=== PATIENT | male | born 1955 | race Caucasian/White ===

== ENCOUNTER 2016-06-23 11:01 | Inpatient (IN) | payer BC ==
[2016-06-23] VITALS (20 sets, daily range): BP systolic 117–152; BP diastolic 71–93; PULSE 56–72; TEMP 36.7–37.4; O2SAT 96–99; Ht 175.3 cm; Wt 95.5 kg
[~2016-06-23] VITALS: Ht 175.3 cm; Wt 95.5 kg
[~2016-06-23 11:01] MED LIST: ASPI81TA28 PO; ATOR10TA88 PO; CHOL100027 PO; CLXOPO OP; CYAN100020 PO; MULT-506 PO; OMEG10007 PO; PRLSR20 PO; RSTOPS OP; VITA1TAB12 PO
[2016-06-23] MEDS ORDERED: SODIUM CHLORIDE 0.9% 1000ML 500 ML IV STA (11:23)
[2016-06-23] MEDS ORDERED: ASPIRIN 81 MG CHEW PO STA (11:23)
[2016-06-23] MEDS ORDERED: ASPIRIN 324 MG CHEW ONE (11:25)
[2016-06-23] MEDS ORDERED: TICAGRELOR 90 MG TAB PO ONE (11:30)
[2016-06-23] MEDS ORDERED: DOPamine 400MG / 250ML D5W ONE (11:35)
[2016-06-23] MEDS ORDERED: ONDANSETRON INJ 2 MG/ML 2 ML VIAL ONE (11:38)
[2016-06-23 11:45] LABS: ISTAT CREATININE 1.2 mg/dl (0.6-1.3); ISTAT HEMOGLOBIN 17.3 g/dl (14.0-18.0); ISTAT IONIZED CALCIUM 1.19 mmol/l (1.12-1.32)
[2016-06-23] MEDS ORDERED: ATROPINE SULFATE 0.1 MG/ML 10 ML SYR ONE (11:46)
[2016-06-23 11:51] LABS: MEAN CELL VOLUME 92.3 fL (80-100); MEAN CORPUSCULAR HEMOGLOBIN 32.5 pg (25-34); MEAN CORPUSCULAR HGB CONC 35.2 g/dl (32-36); MEAN PLATELET VOLUME 10.6 fL (7.4-10.4); PLATELET COUNT 273 K/uL (130-400)
[2016-06-23] MEDS ORDERED: NiCARDipine HCL INJ 2.5 MG/ML 10 ML AMP ONE (11:55)
[2016-06-23] MEDS ORDERED: HEPARIN SOD (PORCINE) 1000 UNIT/ML 10 ML VIAL ONE (11:56)
[2016-06-23] MEDS ORDERED: FENTANYL CITRATE INJ 50 MCG/1 ML 2 ML VIAL ONE (11:57)
[2016-06-23] MEDS ORDERED: MIDAZOLAM HCL 1 MG/ML 2ML VIAL ONE (11:57)
[2016-06-23] MEDS ORDERED: NITROGLYCERIN/D5W 100MCG/ML 20ML SYR ONE (11:57)
[2016-06-23 12:09] LABS: BUN/CREATININE RATIO 17.1 (10-20); CALCIUM 9.1 mg/dl (8.5-10.1); CREATININE 1.4 mg/dl (0.60-1.40); POTASSIUM 3.6 mmol/L (3.5-5.1)
[2016-06-23 12:14] LABS: ALB/GLOB RATIO 1.2 (0.9-2); CKMB/CK RATIO 1.5 (0-3.0)
--- NOTE | 2016-06-23 12:16 | DIAGNOSTIC IMAGING REPORT ---
CHEST ONE VIEW PORTABLE CLINICAL HISTORY: CHEST PAIN dyspnea COMPARISON STUDY: No previous studies for comparison. FINDINGS: Film is obtained in lordotic projection. Mild fullness mid dyspnea mediastinum felt to be projectional. Lungs are clear. Diaphragms smooth. Costophrenic angles are sharp. IMPRESSION: No acute process Electronically signed by: Bartolo Candelario M.D. 06/23/2016 12:14 PM Dictated Date/Time: 06/23/2016 12:14 PM
[2016-06-23] MEDS ORDERED: EPTIFIBATIDE 2 MG/ML 10 ML VIAL IV ONE (12:19)
[2016-06-23] MEDS ORDERED: EPTIFIBATIDE 0.75 MG/ML 75MG VIAL IV ONE (12:19)
--- NOTE | 2016-06-23 12:44 | Procedure Note ---
Pre-Mod Sedation Assessment General Date of Moderate Sedation: Jun 23, 2016. Vital Signs: Vital Signs Past 12 Hours Date Time Temp Pulse Resp B/P Pulse Ox O2 Delivery O2 Flow Rate FiO2 06/23/16 12:36 74 16 124/86 98 Room Air 06/23/16 12:26 73 16 123/91 100 Room Air 06/23/16 11:35 98 Room Air 06/23/16 11:23 53 06/23/16 11:11 36.4 44 18 137/89 98 Room Air Review Cardiovascular: no edema, no JVD, + bradycardia Abdomen: normal bowel sounds, non tender, soft Lungs: chest non-tender, lungs clear Pre-Sedation Airway Assessment Oral Cavity: WNL Able to Visualize Vocal Cords: Yes Short Thick Neck: No Hx of Sleep Apnea: No Smoking Status: Never Smoker Mallampati Classification: Class II ASA Classification: Class III Procedure Planning Contraindications-for Mod Sed: None Yes Notes The planned sedation has been discussed with the patient and consent obtained. I have identified the patient, determined the appropriateness of sedation and have assessed the patient immediately prior to the procedure. All medicine(s) and interventions are by my order.
[2016-06-23] MEDS ORDERED: EPTIFIBATIDE BOLUS / DRIP IV ONE (12:45)
[2016-06-23] MEDS ORDERED: ACETAMINOPHEN 325 MG TAB PO PRN (12:45)
[2016-06-23] MEDS: SODIUM CHLORIDE 0.9% 1000ML 1,000 ML IV SCH ×2 (12:45→17:53)
[2016-06-23] MEDS ORDERED: ONDANSETRON INJ 2 MG/ML 2 ML VIAL IV PRN (12:45)
[2016-06-23] MEDS ORDERED: ATROPINE SULFATE 0.1 MG/ML 5ML SYR IV PRN (12:45)
--- NOTE | 2016-06-23 12:48 | Procedure Note ---
Post-Mod Sedation Assessment General Date of Moderate Sedation Jun 23, 2016. Vital Signs: Vital Signs Past 12 Hours Date Time Temp Pulse Resp B/P Pulse Ox O2 Delivery O2 Flow Rate FiO2 06/23/16 12:36 74 16 124/86 98 Room Air 06/23/16 12:26 73 16 123/91 100 Room Air 06/23/16 11:35 98 Room Air 06/23/16 11:23 53 06/23/16 11:11 36.4 44 18 137/89 98 Room Air Review - Discharge Criteria Vital Signs Stable: Yes Alert/Oriented/Conversant: Yes Returned to Baseline Mental St: Yes Nausea Absent/Minimal: Yes Pain/Discomfort/Absent/Minimal: Yes Normal/Baseline Respirations: Yes Active Bleeding?: No Pt Received D/C Instructions: N/A Prescriptions Given: None Specific Proced. D/C Criteria Distal Pulses Present (Cardiac: Yes Groin site assessed-Card Cath: N/A Voided Prior To Discharge: N/A Discharged Patients Adult Escort/Transportation: Yes
--- NOTE | 2016-06-23 13:20 | Cardiac Catheterization ---
Procedure Note Procedure Date Jun 23, 2016. 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 Circumflex - Moderate caliber vessel, 40% ostial stenosis. Gives off moderate sized 1st OM with 90% ostial stenosis RCA - Dominant, large caliber vessel. Luminal irregularities in proximal and mid segments. Distal RCA 100% occluded prior to take-off of R-PDA. Post intervention PDA with luminal irregularities. R-PAV 20-30% ostial lesion before gives off 2 large R-PLBs. 1st R-PLB with 95% very distal stenosis with apparent thrombus Arterial Closure: TR Band PCI: Antithrombotic therapy: Heparin, Ticagrelor, Integrilin Procedure: BMW wire navigated through distal RCA occlusion into 1st R-PLB Lesion predilated with 2.5 x 12 compliant balloon Distal RCA stented with 3.5 x 18 Xience ZEV Stent post-dilated with 3.5 NC balloon. Post stent placement resolution of ST elevations, SIMA 3 flow and stent well- expanded with minimal residual stenosis. As left system picture were being obtained inferior ST segments mildly elevated again. Thought in part secondary to 95% lesion with thrombus in very distal R- PLB1. Started on Integrilin with improvement in ST segments. Repeat RCA angiogram showed SIMA 3 flow throughout. Summary: 1. Inferior STEMI - 100% acutely occluded distal RCA Successfully treated with PCI with ZEV (3.5 x 18 Xience) 2. Severe multivessel coronary artery disease - Diffuse moderate proximal LAD disease with 70-80% focal mid LAD stenosis. - 90% ostial OM1 stenosis 3. Normal intracardiac filling pressures Recommendations: Admit to ICU for further monitoring Continue Integrilin infusion for 18 hrs Loaded with Ticagrelor/ASA --> continue DAPT for 1 year High dose statin Beta-gibson, GENET as BP allow Will discuss options regarding residual multivessel disease. Hemodynamics Rest Ao: 119/85/101 Final Ao: 144/85 LV: 122/15 Recommendations PCI without planned CABG Specimens None Radiation Exposure (mGy) 2727 Contrast (mls) 160 Opti Fluids (cc crystalloids) 510 NS Anesthesia Moderate Procedural Complication(s) None Disposition ICU ACC Data Cardiac Status Clinical evaluation leading to the procedure CAD Presntation: STEMI STEMI or Non-STEMI: Thrombolytics: No Anginal Classification: CCS IV Heart Failure: No, NYHA Class: CCS I Cardiogenic Shock w/in 24Hrs: No Cardiac Arrest w/in 24Hrs: No Imaging studies past 6 months: No Stress studies past 6 months: No Standard Exercise Stress Test: No Stress Echocardiogram: No Stress Testing w/SPECT MPI: No Cardiac CTA: No Coronary Anatomy Dominant: Right Left Main (% Stenosis): Ostial (20-30) LAD (% Stenosis): Proximal (50-60), Mid (70-80) D1 (% Stenosis): Proximal (70-80) Circumflex (% Stenosis): Ostial (40) OM1 (% Stenosis): Ostial (90) RCA (% Stenosis): Distal (100) R PL1 (% Stenosis): Distal (95) Diagnostic Physician's Name: Dale Jones MD Status: Emergency Closure Device Percutaneous Entry Location: Radial Closure Device: Radial Band Recommendations: PCI without planned CABG PCI Indication: Immediate PCI for STEMI Lesion Segment Name: Distal RCA Culprit Artery: Yes Stenosis Prior to Rx (%): 100 Chronic Total Occlusion: No IVUS: No FFR: No Pre-Procedure SIMA Flow: 0 Previously Treated Lesion: No Lesion Complexity: Non-High/Non-C Lesion Length (mm): 12 Thrombus Present: Yes Bifurcation Lesion: No Guidewire Across Lesion: Yes Guidewire: Stenosis Post-Procedure (%): 0 Post-Procedure SIMA Flow: 3 Device(s) Deployed: Yes Type of Device(s): Xience 3.5 x 18 Intraprocedure Events Significant Dissection: No Perforation: No
--- NOTE | 2016-06-23 14:27 | CARDIOLOGY CONSULTATION ---
DATE OF CONSULTATION: 06/23/2016 REASON FOR CONSULTATION: STEMI. CONSULTATION REQUESTED BY: Dr. Shafer. HISTORY OF PRESENT ILLNESS: Mr. Hudson is a 60-year-old male without significant past medical history who presented acutely to the Emergency Department with feelings of back and left arm pain and generally feeling unwell. He had initial EKG which showed impressive inferior ST elevations with sinus bradycardia and a heart alert was called. The patient was seen in the Emergency Department, he was having continued active symptoms, was hemodynamically stable and decision was made to bring him emergently to the heart catheterization lab. There he was found to have 100% occluded distal RCA which was treated with 1 drug-eluting stent with good angiographic result (3.5 x 18 Xience stent). Post-procedure, the patient was chest pain free, ST segments had improved and he had SIMA 3 flow throughout. He was transferred to the ICU for ongoing care. PAST MEDICAL HISTORY: 1. Hypertension, not on meds. 2. Hyperlipidemia. SOCIAL HISTORY: He is , has 2 grown children. Denies ever smoking. Denies any significant alcohol. Denies any illicit drugs. At baseline he is very active, exercises 4-5 times a week and had just come from spinning class prior to intervention today. FAMILY HISTORY: Father had an CA and in his late 50s. MEDICATIONS: Atorvastatin 10. ALLERGIES: AMOXICILLIN, CEPHALEXIN, CLAVULANIC ACID, SULFA DRUGS. REVIEW OF SYSTEMS: Unable to be obtained due to emergent situation. PHYSICAL EXAMINATION: VITAL SIGNS: Post procedure temperature 36.4, pulse 73, blood pressure 123/91, he is satting 100% on room air. GENERAL: After procedure, the patient appeared comfortable. He was in no acute distress. HEENT: Sclerae are anicteric. Oropharynx is clear. His mucous membranes are moist. NECK: Supple with no lymphadenopathy. He had no jugular venous distention. LUNGS: Clear to auscultation bilaterally. HEART: Irregular rate and rhythm with no appreciable murmurs, rubs or gallops. ABDOMEN: Soft, nontender, nondistended with positive bowel sounds. EXTREMITIES: Warm. He had intact distal pulses. SKIN: Showed no rashes or lesions. NEUROLOGIC: Grossly nonfocal. LABORATORY DATA: White blood cell count 14.6, hemoglobin 16.9, platelets 273. INR 1.0. Chemistry Sodium 140, potassium 3.6, BUN 24, creatinine of 1.4. LFTs were within normal limits except for total bilirubin, which was at the upper limits normal at 1.1, random glucose 156, point of care troponin was negative. Chest x-ray showed no acute cardiopulmonary process. EKG showed inferior ST elevations with sinus bradycardia. Cardiac catheterization, left main 20%-30% ostial. LAD 50%-60% diffuse calcified proximal disease, 70%-80% focal mid segment disease, small diffuse distal disease in the LAD. First diagonal with 70% proximal. Circumflex 40% ostial, OM1 with 90% ostial. RCA dominant distal RCA 100% occluded, post-intervention, there was a 95% very distal lesion in the right first PLB. IMPRESSION AND PLAN: 1. Inferior ST elevation myocardial infarction, status post percutaneous coronary intervention with drug-eluting stent to distal right coronary artery. 2. Severe multivessel coronary artery disease. 3. Hypertension. 4. Hyperlipidemia. The patient is status post successful PCI to distal RCA with 1 drug-eluting stent. He is now chest pain free and hemodynamically and electrically stable. The patient will be transferred to the ICU for further management. Going forward, will plan to continue on Integrilin for 18 hours in the setting of his distal right PLB lesion with thrombus. 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 Will start on high dose statin and beta-gibson and GENET as blood pressure allows. We will make further decision regarding management of his residual multivessel disease, possible PCI at a later point in this hospitalization. Will continue to follow while in the hospital. ROCAEL
--- NOTE | 2016-06-23 15:19 | HISTORY & PHYSICAL EXAMINATION ---
DATE OF ADMISSION: 06/23/2016 PRIMARY CARE PHYSICIAN: Dr. Lee Moy. PRIMARY CONSULTANTS: 1. Dr. Dale Jones, interventional cardiology. 2. Ivan Liang PA-C with the it support analyst service. CHIEF COMPLAINT: Right scapular pain, syncope, STEMI. HISTORY OF PRESENT ILLNESS: Mr. Hudson is a 60-year-old gentleman who is generally healthy. He takes medication only for acid reflux, dyslipidemia, and a baby aspirin. He tells me he was also recently told he was borderline hypertensive and was asked to make lifestyle changes and lose some weight rather than starting on any medications. He presents to the Emergency Department today after developing right-sided scapular pain and subsequently having a syncopal episode while working out at the local [facility]. He tells me over the past few days he has felt well. He has been in his usual state of good health. He did a spinning class yesterday without any difficulty. However, today during his spin class he says he just really did not feel right, started to have this right scapular pain, was unable to finish the entire workout. As he was walking down the hallway, he became lightheaded and blacked out. He was caught by one of the personal trainers. He was given a banana to eat. After this, he felt better. His was about to drive him home when he said that he still did not feel quite right. At that point, they called their PCP, Dr. Moy who advised them to come straight to the ER. His initial EKG is significant for ST elevations in the inferior as well as high lateral leads. His initial set of labs included a chemistry showing a sodium of 140, potassium 3.6, chloride 103, bicarbonate 26, BUN 24, creatinine 1.4, glucose 156, calcium 9.1, bilirubin was 1.1. ALT, AST and alkaline phosphatase were all within normal limits. CPK was 142. CK-MB was 2.2. Initial point of care troponin check was negative. Albumin 4.2, protein 7.7. His CBC showed a white blood cell count of 14,600, hemoglobin 16.9, hematocrit 48, platelets 273,000. PT and PTT were both within normal limits. At this point, he was taken to the cardiac catheterization lab and underwent catheterization with angioplasty and drug-eluting stent placed to the distal RCA which was with a 100% occlusion. He also had severe disease throughout the LAD and obtuse marginal vessels. He has been started on aspirin, Brilinta, beta gibson, GENET inhibitor, high dose statin. He is to continue on an Integrilin drip for the next 18 hours. Currently, echocardiogram is pending as is a repeat EKG post cath. The patient himself tells me that right now he feels well. He has no complaints at this time. He does mention that he still has some soreness in his left arm which he thinks is unrelated as this has been bothering him since working out a few days ago. Otherwise, denies any fever, chills or malaise. Denies any chest pain, shortness of breath or cough. Denies any abdominal pain, nausea, vomiting or diarrhea. Denies any urinary complaints. He denies any lower extremity edema. Denies any joint pain or swelling. He denies any new rash. The patient is currently admitted to the intensive care unit and has remained hemodynamically stable since arriving. ALLERGIES: 1. AMOXICILLIN. 2. CEPHALEXIN. 3. CLAVULANIC ACID. 4. SULFA ANTIBIOTICS. HOME MEDICATIONS: Include: 1. Aspirin 81 mg p.o. daily. 2. "Low dose cholesterol medicine." The patient does not know exactly which. 3. Wishon 3 fatty acid capsules. 4. Multivitamin. 5. Omeprazole. PAST MEDICAL HISTORY: Includes: 1. GERD. 2. Dyslipidemia. 3. Hypertension, which was recently diagnosed, not on any medications. He was attempting to avoid medications with lifestyle changes. FAMILY HISTORY: Positive for premature coronary artery disease in his father and grandfather. SOCIAL HISTORY: The patient lives at home with his . He is completely independent. He is retired from the [employer] field. He is a lifelong nonsmoker. He drinks a couple beers per month. He does not abuse illicit drugs. REVIEW OF SYSTEMS: A 14 system review was conducted and was found to be completely negative except as otherwise indicated above in the history of present illness. PHYSICAL EXAMINATION: VITAL SIGNS: Currently show temperature is 36.7, pulse 66, blood pressure is currently 174/89, oxygen saturation is 97% on room air. GENERAL: The patient is awake, alert, oriented in no acute distress. HEAD, EYES, EARS, NOSE, AND THROAT: The sclerae are nonicteric. Mucous membranes are moist. NECK: Trachea is midline. There is no appreciable JVD. RESPIRATORY: The lungs are grossly clear with fair to good air entry. He is not in any respiratory distress. CARDIOVASCULAR: S1 and S2 are heard. I do not hear any murmur. ABDOMEN: Soft, nontender, nondistended. Bowel sounds are present. EXTREMITIES: Warm and well perfused without edema. The catheterization site over the right radial artery has no evidence for hematoma with good hemostasis. NEUROLOGIC: Nonfocal. PSYCHIATRIC: The patient is calm and cooperative. He exhibits a normal mood and affect. DIAGNOSTIC INVESTIGATIONS: LABORATORY DATA: Imaging, EKG and cardiac catheterization report were reviewed as outlined above in the history of present illness. ASSESSMENT AND PLAN: 1. Acute ST elevation myocardial infarction. The patient is status post drug-eluting stent placement to a 100% lesion in the distal RCA. Integrillin drip will be continued for 18 hours. He is to continue on dual antiplatelet therapy with aspirin 81 mg and Brilinta 90 mg p.o. twice daily for the next 1 year. He has been started on a beta gibson as well as high dose atorvastatin. He has been started on a low dose GENET inhibitor which could be titrated up as his blood pressure allows. We will await repeat EKG as well as an echocardiogram to assess his EF and valvular status. Further care for his other severe multivessel disease per cardiology. 2. Gastroesophageal reflux disease. We will place the patient on a PPI while he is here, especially now that he is being given dual antiplatelet therapy. 3. Dyslipidemia. The patient will be on a high dose statin going forward. 4. Deep venous thrombosis prophylaxis. We will place the patient on SCDs. Hold off giving any subQ heparin while he is still on Integrilin drip. 5. Disposition: Admit to the intensive care unit. Total time spent preparing this history and physical was 40 minutes. MTDD
--- NOTE | 2016-06-23 17:15 | EMERGENCY ROOM VISIT NOTE ---
History Report prepared by Shahramibmargot: Armando Kern Under the Supervision of: Dr. Ivan Villanueva M.D. First contact with patient: 11:14 Chief Complaint: CARDIAC ASSESSMENT Stated Complaint: PASSED OUT, PAINS ON UPPER RT SIDE History of Present Illness The patient is a 60 year old male who presents to the Emergency Room with complaints of constant right shoulder blade pain for the past two hours. The pain is rated 5/10 in severity. The patient was in spin class today when the pain began, which he attends regularly. The patient also noticed increased fatigue and diaphoresis. He denies any chest pain, shortness of breath. The patient was also feeling lightheaded. The patient did not feel any better after the spin class ended. He became very lightheaded and nearly collapsed but his marine animal trainer caught him. The patient was brought to the ED for evaluation. The patient has never been diagnosed with heart disease. His father had an TX at a young age. The patient does have a history of hypertension. Source of History: patient Onset: two hours Position: shoulder (right) Symptom Intensity: 5/10 Timing: constant Associated Symptoms: + diaphoresis, + fatigue, No SOB, No chest pain Review of Systems See HPI for pertinent positives & negatives. A total of 10 systems reviewed and were otherwise negative. Past Medical & Surgical Medical Problems: (1) AMI (acute myocardial infarction) (2) HTN (hypertension) Family History FH: myocardial infarction Social History Smoking Status: Never Smoker Marital Status: Housing Status: lives with family Current/Historical Medications Unable to Obtain Active Prescriptions or Reported Meds Allergies Coded Allergies: Amoxicillin (Verified Allergy, Intermediate, HIVES, 06/23/16) Cephalexin (Verified Allergy, Intermediate, HIVES, 06/23/16) Clavulanic Acid (Verified Allergy, Intermediate, HIVES, 06/23/16) Sulfa Antibiotics (Verified Allergy, Intermediate, Hives, 06/23/16) Physical Exam Vital Signs Date Time Temp Pulse Resp B/P Pulse Ox O2 Delivery O2 Flow Rate FiO2 06/23/16 12:48 67 135/82 97 06/23/16 12:36 74 16 124/86 98 Room Air 06/23/16 12:26 73 16 123/91 100 Room Air 06/23/16 11:35 98 Room Air 06/23/16 11:23 53 06/23/16 11:11 36.4 44 18 137/89 98 Room Air Physical Exam GENERAL: Patient is in no acute distress. HEENT: No acute trauma, normocephalic atraumatic, mucous membranes moist, no nasal congestion, no scleral icterus. NECK: No stridor, no adenopathy, no meningismus, trachea is midline. LUNGS: Clear to auscultation bilaterally, no wheeze, no rhonchi, breath sounds equal. HEART: Bradycardic, no murmurs, rhythm is regular. ABDOMEN: Soft, nontender, bowel sounds positive, no hernias, no peritonitis. EXTREMITIES: No cyanosis or edema, full range of motion of all the joints without pain or difficulty, no signs for acute trauma. NEUROLOGIC: Oriented x 3, no acute motor or sensory deficits, no focal weakness. SKIN: Pale and slightly diaphoretic, no jaundice or rash. Medical Decision & Procedures ER Provider Diagnostic Interpretation: X-ray results as stated below per interpretation by me and the radiologist: CHEST ONE VIEW PORTABLE CLINICAL HISTORY: CHEST PAIN dyspnea COMPARISON STUDY: No previous studies for comparison. FINDINGS: Film is obtained in lordotic projection. Mild fullness mid dyspnea mediastinum felt to be projectional. Lungs are clear. Diaphragms smooth. Costophrenic angles are sharp. IMPRESSION: No acute process Electronically signed by: Bartolo Candelario M.D. 06/23/2016 12:14 PM Dictated Date/Time: 06/23/2016 12:14 PM Laboratory Results 06/23/16 11:25 Test 06/23/16 11:25 06/23/16 11:28 06/23/16 11:29 06/23/16 12:06 Red Blood Count 5.20 M/uL (4.7-6.1) Mean Corpuscular Volume 92.3 fL (80-100) Mean Corpuscular Hemoglobin 32.5 pg (25-34) Mean Corpuscular Hemoglobin Concent 35.2 g/dl (32-36) RDW Standard Deviation 44.4 fL (36.4-46.3) RDW Coefficient of Variation 13.1 % (11.5-14.5) Mean Platelet Volume 10.6 fL (7.4-10.4) Prothrombin Time 11.0 SECONDS (9.0-12.0) Prothromb Time International Ratio 1.0 (0.9-1.1) Activated Partial Thromboplast Time 26.4 SECONDS (21.0-31.0) Partial Thromboplastin Ratio 1.0 Est Creatinine Clear Calc Drug Dose 63.5 ml/min Total Bilirubin 1.1 mg/dl (0.2-1) Aspartate Amino Transf (AST/SGOT) 18 U/L (15-37) Alanine Aminotransferase (ALT/SGPT) 29 U/L (12-78) Alkaline Phosphatase 63 U/L (45-117) Total Creatine Kinase 142 U/L (39-308) Creatine Kinase MB 2.2 ng/ml (0.5-3.6) Creatine Kinase MB Ratio 1.5 (0-3.0) Total Protein 7.7 gm/dl (6.4-8.2) Albumin 4.2 gm/dl (3.4-5.0) Globulin 3.5 gm/dl (2.5-4.0) Albumin/Globulin Ratio 1.2 (0.9-2) Hepatitis C Antibody Screen NEG (NEG) Bedside Hemoglobin 17.3 g/dl (14.0-18.0) Bedside Hematocrit 51 % (42-52) Bedside Sodium 140 mEq/L (135-144) Bedside Potassium 3.6 mEq/L (3.3-5.0) Bedside Chloride 100 mEq/L (101-112) Bedside Total CO2 27 mEq/l (24-31) Bedside Blood Urea Nitrogen 26 mg/dl (7-18) Bedside Creatinine 1.2 mg/dl (0.6-1.3) Bedside Glucose (other) 165 mg/dl (70-99) Bedside Ionized Calcium (Genesis) 1.19 mmol/l (1.12-1.32) Bedside Troponin I 0.000 ng/ml (0-0.045) Kaolin Activated Coagulation Time 224 SECONDS (94-140) Laboratory results reviewed by me. Medications Administered Medications (Trade) Dose Ordered Sig/Bill Route Start Time Stop Time Status Last Admin Dose Admin Sodium Chloride (Nss 1000ml) 500 ml @ 999 mls/hr Q31M STAT IV 06/23/16 11:23 06/23/16 11:53 DC 06/23/16 11:23 999 MLS/HR Aspirin (Aspirin Chew) 324 mg NOW STAT PO 06/23/16 11:23 06/23/16 11:26 DC 06/23/16 11:23 324 MG Ticagrelor (Brilinta Cap) 180 mg ONE ONCE PO 06/23/16 11:30 06/23/16 11:31 DC 06/23/16 11:30 180 MG Atropine Sulfate (Atropine Sulfate) 1 mg STK-MED ONCE .ROUTE 06/23/16 11:46 06/23/16 11:48 DC 06/23/16 11:46 1 MG Heparin Sodium (Porcine) (Heparin Iv Bolus) 10,000 unit STK-MED ONCE .ROUTE 06/23/16 11:56 06/23/16 11:58 DC 06/23/16 11:56 8,000 UNIT Midazolam HCl (Versed Inj) 2 mg STK-MED ONCE .ROUTE 06/23/16 11:57 06/23/16 11:59 DC 06/23/16 11:57 2 MG Fentanyl Citrate 100 mcg 100 mcg STK-MED ONCE .ROUTE 06/23/16 11:57 06/23/16 11:59 DC 06/23/16 11:57 25 MCG Sodium Chloride (Nss 1000ml) 1,000 ml @ 125 mls/hr Q8H IV 06/23/16 12:45 07/23/16 12:44 06/23/16 17:53 125 MLS/HR ECG Indication: back/shoulder pain Rate (beats per minute): 48 Rhythm: sinus bradycardia Findings: no ectopy, other (evidence for acute inferior TX with recipricol changes.) ED Course 1119: The patient was evaluated in room B1. A complete history and physical exam was performed. 1120: of Cardiology is here to evaluate the patient. 1130: The patient was taken to the cardiac catheterization lab. Medical Decision Differential diagnosis includes acute TX, aortic dissection, CHF, pneumothorax, pneumonia, musculoskeletal pain. There is a mild leukocytosis which could be consistent with his pain or possibly just his acute distress. There was no anemia. No significant electrolyte abnormally, kidney failure or hepatitis. There was no coagulopathy. EKG showed a sinus bradycardia with evidence for an acute inferior TX. Initial cardiac enzyme testing 1 is not elevated. The patient presents with some right shoulder and back pain. Workup here suggests an acute TX. When the EKG was noted, a heart alert was called. The patient was given IV saline, he received oral aspirin, he was ordered for a dose of oral Brilinta. The patient will be taken to the cardiac catheterization laboratory. I talked to him about my concerns and findings. of cardiology arrived at the bedside. Impression Primary Impression: Acute TX Scribe Attestation The scribe's documentation has been prepared under my direction and personally reviewed by me in its entirety. I confirm that the note above accurately reflects all work, treatment, procedures, and medical decision making performed by me. Departure Information Dispostion Other (to cardiac catheterization laboratory.) Prescriptions Unable to Obtain Active Prescriptions or Reported Meds Referrals ProLee M.D. (PCP) Forms IMPORTANT VISIT INFORMATION Patient Instructions My [facility]
--- NOTE | 2016-06-23 17:21 | Critical Care Consultation ---
Critical Care Consultation Date of Consultation: Jun 23, 2016. Attending Physician: Saad Julian MD, PhD Reason for Consultation: Post PCI with ZEV to RCA - Integrilin gtt X 18 hours History of Present Illness Attending: Dr. Cook Family History FH: myocardial infarction Social History Smoking Status: Never Smoker Marital Status: Housing Status: lives with family Allergies Coded Allergies: Amoxicillin (Verified Allergy, Intermediate, HIVES, 06/23/16) Cephalexin (Verified Allergy, Intermediate, HIVES, 06/23/16) Clavulanic Acid (Verified Allergy, Intermediate, HIVES, 06/23/16) Sulfa Antibiotics (Verified Allergy, Intermediate, Hives, 06/23/16) Home Medications Unable to Obtain Active Prescriptions or Reported Meds Current Inpatient Medications Current Inpatient Medications Medications (Trade) Dose Ordered Sig/Bill Route Start Time Stop Time Status Last Admin Dose Admin Sodium Chloride (Nss 1000ml) 1,000 ml @ 125 mls/hr Q8H IV 06/23/16 12:45 07/23/16 12:44 Atropine Sulfate (Atropine Sulfate 0.1MG/Ml Inj) 0.5 mg ONE PRN IV 06/23/16 12:45 07/23/16 12:44 Ondansetron HCl (Zofran Inj) 4 mg Q6H PRN IV 06/23/16 12:45 07/23/16 12:44 Aspirin (Ecotrin Tab) 81 mg QAM PO 06/24/16 09:00 07/24/16 08:59 Atorvastatin Calcium (Lipitor Tab) 80 mg QAM PO 06/24/16 09:00 07/24/16 08:59 Metoprolol Tartrate (Lopressor Tab) 25 mg Q12 PO 06/23/16 21:00 07/23/16 20:59 Lisinopril (Zestril Tab) 5 mg QAM PO 06/24/16 09:00 07/24/16 08:59 Acetaminophen (Tylenol Tab) 650 mg Q4H PRN PO 06/23/16 12:45 07/23/16 12:44 Ticagrelor 90 mg 90 mg BID PO 06/23/16 21:00 07/23/16 20:59 Eptifibatide (Integrilin Inj) 100 ml @ 16 mls/hr Q6H15M IV 06/23/16 13:15 06/24/16 06:00 Miscellaneous (Stop Order) 1 ea TODAY@0600 ONCE N/A 06/24/16 06:00 06/24/16 06:01 Pantoprazole Sodium (Protonix Tab) 40 mg QAM PO 06/24/16 09:00 07/24/16 08:59 Physical Exam Date Time Temp Pulse Resp B/P Pulse Ox O2 Delivery O2 Flow Rate FiO2 06/23/16 12:54 36.7 66 16 135/82 97 Room Air 06/23/16 12:36 74 16 124/86 98 Room Air 06/23/16 12:26 73 16 123/91 100 Room Air 06/23/16 11:35 98 Room Air 06/23/16 11:23 53 06/23/16 11:11 36.4 44 18 137/89 98 Room Air Laboratory Results Last 24 Hours Test 06/23/16 11:25 06/23/16 11:28 06/23/16 11:29 06/23/16 12:06 White Blood Count 14.60 K/uL Red Blood Count 5.20 M/uL Hemoglobin 16.9 g/dL Hematocrit 48.0 % Mean Corpuscular Volume 92.3 fL Mean Corpuscular Hemoglobin 32.5 pg Mean Corpuscular Hemoglobin Concent 35.2 g/dl RDW Standard Deviation 44.4 fL RDW Coefficient of Variation 13.1 % Platelet Count 273 K/uL Mean Platelet Volume 10.6 fL Prothrombin Time 11.0 SECONDS Prothromb Time International Ratio 1.0 Activated Partial Thromboplast Time 26.4 SECONDS Partial Thromboplastin Ratio 1.0 Sodium Level 140 mmol/L Potassium Level 3.6 mmol/L Chloride Level 103 mmol/L Carbon Dioxide Level 26 mmol/L Anion Gap 11.0 mmol/L 18.0 mmol/L Blood Urea Nitrogen 24 mg/dl Creatinine 1.40 mg/dl Est Creatinine Clear Calc Drug Dose 63.5 ml/min Estimated GFR () 62.0 Estimated GFR (Non- 53.5 BUN/Creatinine Ratio 17.1 Random Glucose 156 mg/dl Calcium Level 9.1 mg/dl Total Bilirubin 1.1 mg/dl Aspartate Amino Transf (AST/SGOT) 18 U/L Alanine Aminotransferase (ALT/SGPT) 29 U/L Alkaline Phosphatase 63 U/L Total Creatine Kinase 142 U/L Creatine Kinase MB 2.2 ng/ml Creatine Kinase MB Ratio 1.5 Total Protein 7.7 gm/dl Albumin 4.2 gm/dl Globulin 3.5 gm/dl Albumin/Globulin Ratio 1.2 Hepatitis C Antibody Screen NEG Bedside Hemoglobin 17.3 g/dl Bedside Hematocrit 51 % Bedside Sodium 140 mEq/L Bedside Potassium 3.6 mEq/L Bedside Chloride 100 mEq/L Bedside Total CO2 27 mEq/l Bedside Blood Urea Nitrogen 26 mg/dl Bedside Creatinine 1.2 mg/dl Bedside Glucose (other) 165 mg/dl Bedside Ionized Calcium (Genesis) 1.19 mmol/l Bedside Troponin I 0.000 ng/ml Kaolin Activated Coagulation Time 224 SECONDS
[2016-06-23] MEDS: EPTIFIBATIDE INJ 75 MG PREMIXED IV SCH ×2 (17:52→21:39)
--- NOTE | 2016-06-23 18:22 | ECHOCARDIOGRAM REPORT ---
*NOTICE TO RECEIVING CONSTITUTION PARTY AGENCY This information is strictly Confidential and protected under [place] law. [place] law prohibits you from making any further disclosure of this information unless further disclosure is expressly permitted by the written consent of the person to whom it pertains or is authorized by law. A general authorization for the release of medical or other information is not sufficient for this purpose. Hospital accepts no responsibility if the information is made available to any other person, INCLUDING THE PATIENT. Interpretation Summary * Name: SKY VAZQUEZ Study Date: 06/23/2016 03:36 PM BP: 135/82 mmHg * Patient Location: .MSICU\S\E105\S\1 HR: 66 * : 1955 (M/d/yyyy) Gender: Male Height: 69 in * Age: 60 yrs Ethnicity: CA Weight: 218 lb * Ordering Physician: Dale Jones * Referring Physician: Self, Referred * Performed By: Paul Garner RCS * * Reason For Study: AMI, S/P ZEV to RCA * BSA: 2.1 m2 * -- Conclusions -- * The left ventricle is normal in size. * There is mild concentric left ventricular hypertrophy. * Left ventricular systolic function is normal. * Ejection Fraction = 55-60%. * The left ventricular wall motion is normal. * Grade I diastolic dysfunction, (abnormal relaxation pattern). * Trace aortic regurgitation. * No hemodynamically significant valvular aortic stenosis. * There is mild tricuspid regurgitation. * Right ventricular systolic pressure is elevated at 30-40mmHg. Procedure Details * A complete two-dimensional transthoracic echocardiogram was performed (2D, M-mode, Doppler and color flow Doppler). Left Ventricle * The left ventricle is normal in size. * There is mild concentric left ventricular hypertrophy. * Left ventricular systolic function is normal. * Ejection Fraction = 55-60%. * The left ventricular wall motion is normal. Right Ventricle * The right ventricle is normal in size and function. Atria * The left atrial size is normal. * Right atrial size is normal. * The interatrial septum is intact with no evidence for an atrial septal defect. Mitral Valve * The mitral valve is normal in structure and function. * There is trace mitral regurgitation. Tricuspid Valve * The tricuspid valve is normal in structure and function. * There is mild tricuspid regurgitation. * Right ventricular systolic pressure is elevated at 30-40mmHg. Aortic Valve * The aortic valve is normal in structure and function. * The aortic valve is trileaflet. * No hemodynamically significant valvular aortic stenosis. * Trace aortic regurgitation. Pulmonic Valve * The pulmonic valve is not well visualized. * There is no pulmonic valvular regurgitation. Great Vessels * The aortic root is normal size. * Aortic arch of normal dimension. * No obvious dissection could be visualized. * The pulmonary is not well visualized. Pericardium/Pleural * There is no pericardial effusion. Great Vessels * Normal inferior vena cava diameter and respiratory variation suggests normal central venous pressure. Left Ventricular Diastolic Function * Grade I diastolic dysfunction, (abnormal relaxation pattern). MMode 2D Measurements and Calculations IVSd 1.1 cm IVSs 1.3 cm LVIDd 4.4 cm LVIDs 2.6 cm LVPWd 1.1 cm LVPWs 1.3 cm IVS/LVPW 0.97 FS 40.6 % EDV(Teich) 89.1 ml ESV(Teich) 25.4 ml EF(Teich) 71.5 % EDV(cubed) 87.0 ml ESV(cubed) 18.2 ml EF(cubed) 79.0 % % IVS thick 19.6 % % LVPW thick 14.5 % LV mass(C)d 169.3 grams LV mass(C)dI 79.0 grams/m\S\2 LV mass(C)s 101.9 grams LV mass(C)sI 47.5 grams/m\S\2 CO(Teich) 4.3 l/min CI(Teich) 2.0 l/min/m\S\2 SV(Teich) 63.8 ml SI(Teich) 29.8 ml/m\S\2 CO(cubed) 4.6 l/min CI(cubed) 2.1 l/min/m\S\2 SV(cubed) 68.7 ml SI(cubed) 32.1 ml/m\S\2 Ao root diam 3.6 cm Ao root area 10.4 cm\S\2 ACS 2.0 cm LA dimension 4.2 cm LA/Ao 1.2 LVAd ap4 36.6 cm\S\2 LVLd ap4 9.0 cm EDV(MOD-sp4) 124.0 ml LVAs ap4 18.7 cm\S\2 LVLs ap4 7.0 cm ESV(MOD-sp4) 44.0 ml EF(MOD-sp4) 64.5 % LVAd ap2 33.7 cm\S\2 LVLd ap2 9.2 cm EDV(MOD-sp2) 106.0 ml LVAs ap2 18.7 cm\S\2 LVLs ap2 7.2 cm ESV(MOD-sp2) 44.0 ml EF(MOD-sp2) 58.5 % CO(MOD-sp4) 5.4 l/min CI(MOD-sp4) 2.5 l/min/m\S\2 SV(MOD-sp4) 80.0 ml SI(MOD-sp4) 37.3 ml/m\S\2 CO(MOD-sp2) 4.2 l/min CI(MOD-sp2) 1.9 l/min/m\S\2 SV(MOD-sp2) 62.0 ml SI(MOD-sp2) 28.9 ml/m\S\2 Doppler Measurements and Calculations MV E max kaylen 79.7 cm/sec MV A max kaylen 61.9 cm/sec MV E/A 1.3 MV P1/2t max kaylen 78.1 cm/sec MV P1/2t 66.6 msec MVA(P1/2t) 3.3 cm\S\2 MV dec slope 343.5 cm/sec\S\2 MV dec time 0.21 sec Ao V2 max 118.8 cm/sec Ao max PG 5.6 mmHg Ao max PG (full) 2.6 mmHg LV V1 max PG 3.0 mmHg LV V1 max 86.6 cm/sec PA V2 max 104.2 cm/sec PA max PG 4.3 mmHg TR max kaylen 267.4 cm/sec
--- NOTE | 2016-06-23 18:46 | Critical Care Consultation ---
Critical Care Consultation Date of Consultation: Jun 23, 2016. Attending Physician: Saad Julian MD, PhD Reason for Consultation: s/p cardiac catheterization History of Present Illness 60 y/o M with a PMH of hyperlipidemia, GERD and borderline HTN, presented to the ER with shoulder pain, fatigue, lightheadedness and near syncope after a spin class this morning. He underwent emergent cardiac catheterization after his EKG revealed significant ST segment elevation in the inferior and lateral leads. he is s/p cardiac cath with angioplasty and drug eluting stent with 100% RCA occlusion. he is currently doing fine, denies any chest pain, SOB, palpitations, lightheadedness . Past Medical/Surgical History GERD, borderline HTN, hyperlipidemia Family History FH: myocardial infarction Social History Smoking Status: Never Smoker Marital Status: Housing Status: lives with family Allergies Coded Allergies: Amoxicillin (Verified Allergy, Intermediate, HIVES, 06/23/16) Cephalexin (Verified Allergy, Intermediate, HIVES, 06/23/16) Clavulanic Acid (Verified Allergy, Intermediate, HIVES, 06/23/16) Sulfa Antibiotics (Verified Allergy, Intermediate, Hives, 06/23/16) Home Medications Scheduled Aspirin (Aspirin EC Low Dose), 81 MG PO QAM Atorvastatin (Lipitor), 1 TAB PO HS Lisinopril (Lisinopril), 5 MG PO QAM Metoprolol Tartrate (Lopressor), 25 MG PO Q12 Ticagrelor (Brilinta), 90 MG PO BID Current Inpatient Medications Current Inpatient Medications Medications (Trade) Dose Ordered Sig/Ibll Route Start Time Stop Time Status Last Admin Dose Admin Sodium Chloride (Nss 1000ml) 1,000 ml @ 125 mls/hr Q8H IV 06/23/16 12:45 07/23/16 12:44 06/23/16 17:53 125 MLS/HR Atropine Sulfate (Atropine Sulfate 0.1MG/Ml Inj) 0.5 mg ONE PRN IV 06/23/16 12:45 07/23/16 12:44 Ondansetron HCl (Zofran Inj) 4 mg Q6H PRN IV 06/23/16 12:45 07/23/16 12:44 Aspirin (Ecotrin Tab) 81 mg QAM PO 06/24/16 09:00 07/24/16 08:59 Atorvastatin Calcium (Lipitor Tab) 80 mg QAM PO 06/24/16 09:00 07/24/16 08:59 Metoprolol Tartrate (Lopressor Tab) 25 mg Q12 PO 06/23/16 21:00 07/23/16 20:59 Lisinopril (Zestril Tab) 5 mg QAM PO 06/24/16 09:00 07/24/16 08:59 Acetaminophen (Tylenol Tab) 650 mg Q4H PRN PO 06/23/16 12:45 07/23/16 12:44 Ticagrelor 90 mg 90 mg BID PO 06/23/16 21:00 07/23/16 20:59 Eptifibatide (Integrilin Inj) 100 ml @ 16 mls/hr Q6H15M IV 06/23/16 13:15 06/24/16 06:00 Miscellaneous (Stop Order) 1 ea TODAY@0600 ONCE N/A 06/24/16 06:00 06/24/16 06:01 Pantoprazole Sodium 40 mg 40 mg QAM PO 06/24/16 09:00 07/24/16 08:59 Magnesium Sulfate/ Prmx (Magnesium Sulfate/Premixed D5W) 100 ml @ 100 mls/hr NOW STAT IV 06/23/16 18:02 06/23/16 19:01 UNV Potassium Chloride (Klor-Con M10) 40 meq NOW STAT PO 06/23/16 18:03 06/23/16 18:04 UNV Review of Systems A 10 point review of systems is been obtained and is otherwise negative Constitutional: No chills, No fever Eyes: No worsening of vision ENT: No hearing loss Respiratory: No cough, No dyspnea on exertion, No shortness of breath, No sputum Cardiovascular: No chest pain, No palpitations Abdomen: No nausea, No pain, No vomiting Neurologic: No numbness/tingling, No paralysis, No weakness Psychiatric: No depression symptoms Endocrine: No fatigue Physical Exam Date Time Temp Pulse Resp B/P Pulse Ox O2 Delivery O2 Flow Rate FiO2 06/23/16 12:54 36.7 66 16 135/82 97 Room Air 06/23/16 12:36 74 16 124/86 98 Room Air 06/23/16 12:26 73 16 123/91 100 Room Air 06/23/16 11:35 98 Room Air 06/23/16 11:23 53 06/23/16 11:11 36.4 44 18 137/89 98 Room Air General Appearance: well-appearing, WD/WN, no apparent distress Neck: normal range of motion Respiratory: breath sounds normal, clear to auscultation Cardiovasular: regular rate/rhythm, normal peripheral pulses Abdomen: non tender, normal bowel sounds Upper Extremities: normal ROM Lower Extremities: no edema Neuro: alert, oriented x 3 Laboratory Results Last 24 Hours Test 06/23/16 11:25 06/23/16 11:28 06/23/16 11:29 06/23/16 12:06 White Blood Count 14.60 K/uL Red Blood Count 5.20 M/uL Hemoglobin 16.9 g/dL Hematocrit 48.0 % Mean Corpuscular Volume 92.3 fL Mean Corpuscular Hemoglobin 32.5 pg Mean Corpuscular Hemoglobin Concent 35.2 g/dl RDW Standard Deviation 44.4 fL RDW Coefficient of Variation 13.1 % Platelet Count 273 K/uL Mean Platelet Volume 10.6 fL Prothrombin Time 11.0 SECONDS Prothromb Time International Ratio 1.0 Activated Partial Thromboplast Time 26.4 SECONDS Partial Thromboplastin Ratio 1.0 Sodium Level 140 mmol/L Potassium Level 3.6 mmol/L Chloride Level 103 mmol/L Carbon Dioxide Level 26 mmol/L Anion Gap 11.0 mmol/L 18.0 mmol/L Blood Urea Nitrogen 24 mg/dl Creatinine 1.40 mg/dl Est Creatinine Clear Calc Drug Dose 63.5 ml/min Estimated GFR () 62.0 Estimated GFR (Non- 53.5 BUN/Creatinine Ratio 17.1 Random Glucose 156 mg/dl Calcium Level 9.1 mg/dl Total Bilirubin 1.1 mg/dl Aspartate Amino Transf (AST/SGOT) 18 U/L Alanine Aminotransferase (ALT/SGPT) 29 U/L Alkaline Phosphatase 63 U/L Total Creatine Kinase 142 U/L Creatine Kinase MB 2.2 ng/ml Creatine Kinase MB Ratio 1.5 Total Protein 7.7 gm/dl Albumin 4.2 gm/dl Globulin 3.5 gm/dl Albumin/Globulin Ratio 1.2 Hepatitis C Antibody Screen NEG Bedside Hemoglobin 17.3 g/dl Bedside Hematocrit 51 % Bedside Sodium 140 mEq/L Bedside Potassium 3.6 mEq/L Bedside Chloride 100 mEq/L Bedside Total CO2 27 mEq/l Bedside Blood Urea Nitrogen 26 mg/dl Bedside Creatinine 1.2 mg/dl Bedside Glucose (other) 165 mg/dl Bedside Ionized Calcium (Genesis) 1.19 mmol/l Bedside Troponin I 0.000 ng/ml Kaolin Activated Coagulation Time 224 SECONDS Test 06/23/16 17:46 06/23/16 18:09 Diagnostic Results CHEST ONE VIEW PORTABLE CLINICAL HISTORY: CHEST PAIN dyspnea COMPARISON STUDY: No previous studies for comparison. FINDINGS: Film is obtained in lordotic projection. Mild fullness mid dyspnea mediastinum felt to be projectional. Lungs are clear. Diaphragms smooth. Costophrenic angles are sharp. IMPRESSION: No acute process EKG on arrival; Marked sinus bradycardia Non-specific intra-ventricular conduction block Inferior injury pattern Lateral injury pattern ACUTE PR / STEMI EKG after cardiac cath: Normal sinus rhythm Borderline Criteria for Inferior infarct , age undetermined Abnormal ECG When compared with ECG of 23-JUN-2016 11:16, ST elevation in Inferolateral leads no longer present Vent. rate has increased BY 22 BPM ECHO: * -- Conclusions -- * The left ventricle is normal in size. * There is mild concentric left ventricular hypertrophy. * Left ventricular systolic function is normal. * Ejection Fraction = 55-60%. * The left ventricular wall motion is normal. * Grade I diastolic dysfunction, (abnormal relaxation pattern). * Trace aortic regurgitation. * No hemodynamically significant valvular aortic stenosis. * There is mild tricuspid regurgitation. * Right ventricular systolic pressure is elevated at 30-40mmHg. Assessment & Plan 60 y/o M with a PMH of hyperlipidemia, GERD and borderline HTN, presented to the ER with shoulder pain, fatigue, lightheadedness and near syncope after a spin class this morning. He underwent emergent cardiac catheterization after his EKG revealed significant ST segment elevation in the inferior and lateral leads. he is s/p cardiac cath with angioplasty and drug eluting stent with 100% RCA occlusion. developed a run of Vtach but was asymptomatic Neuro: - Alert and oriented CVS: Acute STEMI s/p cardiac cath - Angioplasty to distal RCA with drug eluting stent - Echo: Left ventricular systolic function is normal. Ejection Fraction = 55-60%. The left ventricular wall motion is normal. - Integrilin for 18 hours - Aspirin and Brilinta for an year - Zestril 5 mg - Atorvastatin 80 mg - Metoprolol 25 mg BID - Troponin tended Asymptomatic Vtach - for about 19 sec - check electrolytes Borderline HTN: - No home meds - low dose ACEI Hyperlipidemia: - Atorvastatin GI/FEN: - GERD Protonix DVT prophylaxis: SCDS No Heparin SQ until off Integrilin Resident Physician Supervision Note: Dr. Amrit Ann was resident physician during care of patient. I separately evaluated patient and did history and exam. I discussed the case with the resident and generally agree with the findings and plan. Optimized patient's potassium and magnesium given 2 runs of nonsustained ventricular tachycardia status post cardiac catheterization with drug-eluting stent placement. Discussed the case briefly with , ICU status for intensive cardiac monitoring Documented By: Xu Cook DO
[2016-06-23] MEDS ORDERED: POTASSIUM CHLORIDE 10 MEQ TABCR PO ONE (19:00)
[2016-06-23] MEDS: MAGNESIUM SULFATE 1GM / D5W 1 GM in PREMIXED IN D5W 100 ML IV SCH ×2 (19:26→20:29)
[2016-06-23 19:49] LABS: BUN/CREATININE RATIO 13.6 (10-20); CALCIUM 8.6 mg/dl (8.5-10.1); CREATININE 1.4 mg/dl (0.60-1.40); POTASSIUM 4.2 mmol/L (3.5-5.1)
[2016-06-23] MEDS: TICAGRELOR 90 MG TAB PO SCH (20:28)
[2016-06-23] MEDS: METOPROLOL TARTRATE 25 MG TAB PO SCH (21:00)
[2016-06-24] VITALS (9 sets, daily range): BP systolic 119–154; BP diastolic 71–94; PULSE 52–67; TEMP 36.9–37.3; O2SAT 96–99
[2016-06-24] MEDS: EPTIFIBATIDE INJ 75 MG PREMIXED IV SCH (01:45)
[2016-06-24] MEDS: SODIUM CHLORIDE 0.9% 1000ML 1,000 ML IV SCH (04:57)
[2016-06-24] MEDS ORDERED: Integrelin infusion --> STOP ORDER ONE (06:00)
[2016-06-24 06:17] LABS: BASO % 0.2 %; BASO ABS # 0.02 K/uL (0-0.2); COMPLETE YES; HEMATOCRIT 44.6 % (42-52); IG% 0.2 %; LYMPH ABS # 1.75 K/uL (1.2-3.4); MEAN CELL VOLUME 93.5 fL (80-100); MEAN CORPUSCULAR HEMOGLOBIN 32.5 pg (25-34); MEAN CORPUSCULAR HGB CONC 34.8 g/dl (32-36); MEAN PLATELET VOLUME 11.1 fL (7.4-10.4); MONO % 8.8 %; NEUT % 75.8 %; PLATELET COUNT 197 K/uL (130-400); RED BLOOD COUNT 4.77 M/uL (4.7-6.1); WHITE BLOOD COUNT 12.54 K/uL (4.8-10.8)
[2016-06-24 06:50] LABS: BUN/CREATININE RATIO 14.9 (10-20); CALCIUM 8.4 mg/dl (8.5-10.1); CREATININE 1.1 mg/dl (0.60-1.40); POTASSIUM 3.8 mmol/L (3.5-5.1)
[2016-06-24 06:56] LABS: CHOLESTEROL/HDL RATIO 3.1
[2016-06-24 06:59] LABS: ESTIMATED AVERAGE GLUCOSE 103 mg/dl; HA1C FLAG Normal (Normal)
[2016-06-24] MEDS: LISINOPRIL 5 MG TAB PO SCH (07:56)
[2016-06-24] MEDS: ATORVASTATIN 40 MG TAB PO SCH (07:57)
[2016-06-24] MEDS: ASPIRIN 81 MG ECTAB PO SCH (07:57)
[2016-06-24] MEDS: TICAGRELOR 90 MG TAB PO SCH ×2 (07:57→20:21)
[2016-06-24] MEDS: METOPROLOL TARTRATE 25 MG TAB PO SCH ×2 (07:57→20:20)
[2016-06-24] MEDS: PANTOprazole SOD 40 MG TAB PO SCH (07:57)
[2016-06-24] MEDS ORDERED: POTASSIUM CHLORIDE 10 MEQ TABCR PO ONE (08:45)
--- NOTE | 2016-06-24 08:45 | Hospitalist Progress Note ---
Hospitalist Progress Note Date of Service Jun 24, 2016. Subjective Pt evaluation today including: conversation w/ patient, physical exam, lab review, review of studies, review of inpatient medication list Pain: denies. Patient denies any new complaints. No CP or dyspnea overnight. Denies any problem with his right radial puncture site. Medications Medications (Trade) Dose Ordered Sig/Bill Route Start Time Stop Time Status Last Admin Dose Admin Sodium Chloride (Nss 1000ml) 500 ml @ 999 mls/hr Q31M STAT IV 06/23/16 11:23 06/23/16 11:53 DC 06/23/16 11:23 999 MLS/HR Aspirin (Aspirin Chew) 324 mg NOW STAT PO 06/23/16 11:23 06/23/16 11:26 DC 06/23/16 11:23 324 MG Ticagrelor (Brilinta Cap) 180 mg ONE ONCE PO 06/23/16 11:30 06/23/16 11:31 DC 06/23/16 11:30 180 MG Atropine Sulfate (Atropine Sulfate) 1 mg STK-MED ONCE .ROUTE 06/23/16 11:46 06/23/16 11:48 DC 06/23/16 11:46 1 MG Heparin Sodium (Porcine) (Heparin Iv Bolus) 10,000 unit STK-MED ONCE .ROUTE 06/23/16 11:56 06/23/16 11:58 DC 06/23/16 11:56 8,000 UNIT Midazolam HCl (Versed Inj) 2 mg STK-MED ONCE .ROUTE 06/23/16 11:57 06/23/16 11:59 DC 06/23/16 11:57 2 MG Fentanyl Citrate 100 mcg 100 mcg STK-MED ONCE .ROUTE 06/23/16 11:57 06/23/16 11:59 DC 06/23/16 11:57 25 MCG Sodium Chloride (Nss 1000ml) 1,000 ml @ 125 mls/hr Q8H IV 06/23/16 12:45 06/24/16 08:25 DC 06/24/16 04:57 125 MLS/HR Aspirin (Ecotrin Tab) 81 mg QAM PO 06/24/16 09:00 07/24/16 08:59 06/24/16 07:57 81 MG Atorvastatin Calcium (Lipitor Tab) 80 mg QAM PO 06/24/16 09:00 07/24/16 08:59 06/24/16 07:57 80 MG Metoprolol Tartrate (Lopressor Tab) 25 mg Q12 PO 06/23/16 21:00 07/23/16 20:59 06/24/16 07:57 25 MG Lisinopril (Zestril Tab) 5 mg QAM PO 06/24/16 09:00 07/24/16 08:59 06/24/16 07:56 5 MG Ticagrelor 90 mg 90 mg BID PO 06/23/16 21:00 07/23/16 20:59 06/24/16 07:57 90 MG Eptifibatide (Integrilin Inj) 100 ml @ 16 mls/hr Q6H15M IV 06/23/16 13:15 06/24/16 06:00 DC 06/23/16 21:39 16 MLS/HR Miscellaneous (Stop Order) 1 ea TODAY@0600 ONCE N/A 06/24/16 06:00 06/24/16 06:01 DC 06/24/16 06:11 1 EA Pantoprazole Sodium 40 mg 40 mg QAM PO 06/24/16 09:00 07/24/16 08:59 06/24/16 07:57 40 MG Magnesium Sulfate/ Prmx (Magnesium Sulfate/Premixed D5W) 100 ml @ 100 mls/hr Q1H IV 06/23/16 18:45 06/23/16 20:44 DC 06/23/16 20:29 100 MLS/HR Potassium Chloride (Klor-Con M10) 40 meq 1900 ONCE PO 06/23/16 19:00 06/23/16 19:01 DC 06/23/16 19:26 40 MEQ Objective Vital Signs Date Time Temp Pulse Resp B/P Pulse Ox O2 Delivery O2 Flow Rate FiO2 06/24/16 06:00 65 15 135/86 97 Room Air 06/24/16 04:00 37.0 53 15 127/81 98 Room Air 06/24/16 04:00 97 Room Air 06/24/16 02:00 62 17 141/80 98 Room Air 06/24/16 00:01 37.3 52 16 138/83 97 Room Air 06/24/16 00:00 97 Room Air 06/23/16 22:00 56 15 152/90 97 Room Air 06/23/16 20:00 99 Room Air 06/23/16 20:00 37.4 57 14 150/93 99 Room Air 06/23/16 18:30 63 122/91 98 06/23/16 18:00 37.0 72 122/91 98 06/23/16 16:58 60 132/83 98 06/23/16 16:43 58 125/81 98 06/23/16 16:28 58 117/93 98 06/23/16 16:13 59 134/75 98 06/23/16 16:00 98 Room Air 06/23/16 15:58 60 131/83 97 06/23/16 15:43 58 120/71 98 06/23/16 15:29 59 135/71 97 06/23/16 15:14 64 139/82 98 06/23/16 13:58 62 147/92 97 06/23/16 13:43 58 132/83 96 06/23/16 13:29 64 130/79 98 06/23/16 13:13 66 136/85 97 06/23/16 12:58 70 145/84 98 06/23/16 12:54 36.7 66 16 135/82 97 Room Air 06/23/16 12:48 67 135/82 97 06/23/16 12:36 74 16 124/86 98 Room Air 06/23/16 12:26 73 16 123/91 100 Room Air 06/23/16 11:35 98 Room Air 06/23/16 11:23 53 06/23/16 11:11 36.4 44 18 137/89 98 Room Air Physical Exam General Appearance: no apparent distress Eyes: sclerae normal Neck: no JVD Respiratory/Chest: lungs clear, no respiratory distress Cardiovascular: regular rate, rhythm, no murmur, + pertinent finding (NO evidence of hematoma at right radial artery puncture site) Abdomen: normal bowel sounds, non tender, soft Extremities: no pedal edema Neurologic/Psychiatric: no motor/sensory deficits, alert, oriented x 3 Skin: normal color, warm/dry Laboratory Results Last 24 Hours Test 06/23/16 11:25 06/23/16 11:28 06/23/16 11:29 06/23/16 12:06 White Blood Count 14.60 K/uL Red Blood Count 5.20 M/uL Hemoglobin 16.9 g/dL Hematocrit 48.0 % Mean Corpuscular Volume 92.3 fL Mean Corpuscular Hemoglobin 32.5 pg Mean Corpuscular Hemoglobin Concent 35.2 g/dl RDW Standard Deviation 44.4 fL RDW Coefficient of Variation 13.1 % Platelet Count 273 K/uL Mean Platelet Volume 10.6 fL Prothrombin Time 11.0 SECONDS Prothromb Time International Ratio 1.0 Activated Partial Thromboplast Time 26.4 SECONDS Partial Thromboplastin Ratio 1.0 Sodium Level 140 mmol/L Potassium Level 3.6 mmol/L Chloride Level 103 mmol/L Carbon Dioxide Level 26 mmol/L Anion Gap 11.0 mmol/L 18.0 mmol/L Blood Urea Nitrogen 24 mg/dl Creatinine 1.40 mg/dl Est Creatinine Clear Calc Drug Dose 63.5 ml/min Estimated GFR () 62.0 Estimated GFR (Non- 53.5 BUN/Creatinine Ratio 17.1 Random Glucose 156 mg/dl Calcium Level 9.1 mg/dl Total Bilirubin 1.1 mg/dl Aspartate Amino Transf (AST/SGOT) 18 U/L Alanine Aminotransferase (ALT/SGPT) 29 U/L Alkaline Phosphatase 63 U/L Total Creatine Kinase 142 U/L Creatine Kinase MB 2.2 ng/ml Creatine Kinase MB Ratio 1.5 Total Protein 7.7 gm/dl Albumin 4.2 gm/dl Globulin 3.5 gm/dl Albumin/Globulin Ratio 1.2 Hepatitis C Antibody Screen NEG Bedside Hemoglobin 17.3 g/dl Bedside Hematocrit 51 % Bedside Sodium 140 mEq/L Bedside Potassium 3.6 mEq/L Bedside Chloride 100 mEq/L Bedside Total CO2 27 mEq/l Bedside Blood Urea Nitrogen 26 mg/dl Bedside Creatinine 1.2 mg/dl Bedside Glucose (other) 165 mg/dl Bedside Ionized Calcium (Genesis) 1.19 mmol/l Bedside Troponin I 0.000 ng/ml Kaolin Activated Coagulation Time 224 SECONDS Test 06/23/16 18:17 06/24/16 01:43 06/24/16 05:24 Sodium Level 141 mmol/L 143 mmol/L Potassium Level 4.2 mmol/L 3.8 mmol/L Chloride Level 106 mmol/L 109 mmol/L Carbon Dioxide Level 26 mmol/L 25 mmol/L Anion Gap 9.0 mmol/L 9.0 mmol/L Blood Urea Nitrogen 19 mg/dl 16 mg/dl Creatinine 1.40 mg/dl 1.10 mg/dl Est Creatinine Clear Calc Drug Dose 63.9 ml/min 81.4 ml/min Estimated GFR () 62.0 82.9 Estimated GFR (Non- 53.5 71.6 BUN/Creatinine Ratio 13.6 14.9 Random Glucose 87 mg/dl 100 mg/dl Calcium Level 8.6 mg/dl 8.4 mg/dl Magnesium Level 2.1 mg/dl Troponin I 10.700 ng/ml 29.100 ng/ml 23.100 ng/ml White Blood Count 12.54 K/uL Red Blood Count 4.77 M/uL Hemoglobin 15.5 g/dL Hematocrit 44.6 % Mean Corpuscular Volume 93.5 fL Mean Corpuscular Hemoglobin 32.5 pg Mean Corpuscular Hemoglobin Concent 34.8 g/dl Platelet Count 197 K/uL Mean Platelet Volume 11.1 fL Neutrophils (%) (Auto) 75.8 % Lymphocytes (%) (Auto) 14.0 % Monocytes (%) (Auto) 8.8 % Eosinophils (%) (Auto) 1.0 % Basophils (%) (Auto) 0.2 % Neutrophils # (Auto) 9.52 K/uL Lymphocytes # (Auto) 1.75 K/uL Monocytes # (Auto) 1.10 K/uL Eosinophils # (Auto) 0.12 K/uL Basophils # (Auto) 0.02 K/uL RDW Standard Deviation 45.8 fL RDW Coefficient of Variation 13.4 % Immature Granulocyte % (Auto) 0.2 % Immature Granulocyte # (Auto) 0.03 K/uL Estimated Average Glucose 103 mg/dl Hemoglobin A1c 5.2 % Triglycerides Level 116 mg/dl Cholesterol Level 125 mg/dl HDL Cholesterol 40 mg/dl LDL Cholesterol, Calculated 62 mg/dl VLDL Cholesterol, Calculated 23 mg/dl Cholesterol/HDL Ratio 3.1 Diagnostic Results TTE Interpretation Summary * Name: SKY VAZQUEZ Study Date: 06/23/2016 03:36 PM BP: 135/82 mmHg * Patient Location: [facility] [place]\S\[facility]\S\1 HR: 66 * : 1955 (M/d/yyyy) Gender: Male Height: 69 in * Age: 60 yrs Ethnicity: [place] Weight: 218 lb * Ordering Physician: Dale Jones * Referring Physician: Self, Referred * Performed By: Paul Garner RCS * * Reason For Study: AMI, S/P ZEV to RCA * BSA: 2.1 m2 * -- Conclusions -- * The left ventricle is normal in size. * There is mild concentric left ventricular hypertrophy. * Left ventricular systolic function is normal. * Ejection Fraction = 55-60%. * The left ventricular wall motion is normal. * Grade I diastolic dysfunction, (abnormal relaxation pattern). * Trace aortic regurgitation. * No hemodynamically significant valvular aortic stenosis. * There is mild tricuspid regurgitation. * Right ventricular systolic pressure is elevated at 30-40mmHg. Assessment and Plan (1) ST elevation (STEMI) myocardial infarction involving right coronary artery Assessment & Plan: S/p ZEV to distal RCA. Integrillin off. Denying any further symptoms. Continue ASA, ticagrelor, high-intensity statin, and beta gibson. May need to consider decreasing dose of metoprolol, as he has been bradycardic in the 50s (2) CAD, multiple vessel Assessment & Plan: Further interventions to remaining diseased vessels will be determined by Cardio. Keep DAPT, BB, high-intensity statin, GENET-I. (3) HTN (hypertension) Assessment & Plan: Not on meds prior to admission. LVH on echo suggests need for tighter control. He's been started on metoprolol and low dose lisinopril, which could be titrated up by his PCP as an outpatient. (4) GERD (gastroesophageal reflux disease) Assessment & Plan: Stable. Continue PPI. (5) Dyslipidemia Assessment & Plan: On statin. Discharge planning: home (when cleared by Cardiology)
[2016-06-24] MEDS: ENOXAPARIN 40 MG/0.4 ML SYR SQ SCH (09:03)
--- NOTE | 2016-06-24 13:47 | Cardiology Follow-Up ---
Subjective Subjective Date of Service: Jun 24, 2016. Pt evaluation today including: conversation w/ patient, conversation w/ family , physical exam, chart review, lab review, review of studies, review of inpatient medication list Additional Details: No significant chest pain overnight. Minimal right chest wall discomfort persists. No significant pain at right radial access site. Otherwise feels well. Telemetry reviewed--19 beat run of nonsustained VT overnight, sinus bradycardia this a.m. Problem List Medical Problems: (1) Acute NC Status: Acute Review of Systems Constitutional: No chills, No fever ENT: No hearing loss Respiratory: No cough Cardiac: No chest pain, No edema, No orthopnea Abdomen: No nausea, No pain Male : No dysuria Neurologic: No memory loss Heme: No abnormal bleeding/bruising Endo: No fatigue Objective Vital Signs Last Vital Signs Documentation Date Time Temp Pulse Resp B/P Pulse Ox O2 Delivery O2 Flow Rate FiO2 06/24/16 12:00 96 Room Air 06/24/16 12:00 36.9 58 16 119/71 Physical Exam: General Appearance: no apparent distress ENT: hearing grossly normal Neck: no JVD Respiratory/Chest: lungs clear, no respiratory distress Cardiovascular: regular rate, rhythm, no murmur, + pertinent finding (No evidence of hematoma at right radial access site, intact distal pulses.) Abdomen: normal bowel sounds, non tender, soft Extremities: no pedal edema Neurologic/Psychiatric: no motor/sensory deficits, alert, oriented x 3 Skin: normal color, warm/dry Assessment and Plan 1. Inferior STEMI status post PCI with 1 drug eluting stent to distal RCA 2. Non culprit multivessel coronary artery disease 3. Nonsustained VT 4. Hypertension Patient doing well with no recurrent chest pain now 1 day from his initial event. Troponin peaked at 29 and no significant wall motion abnormalities on echocardiogram. Integrilin has been discontinued --going forward will continue dual antiplatelet therapy with aspirin and Brilinta with plans for dual antiplatelet therapy for at least 1 year. --continue on current metoprolol and GENET-inhibitor. --continue on high-dose statin --continue to supplement electrolytes as needed, goal K > 4, goal magnesium > 2 --in regards to residual non culprit coronary artery disease will plan to assess further with stress test as an outpatient after discharge. --from a cardiac standpoint okay to transfer to telemetry today. If remains stable potentially home tomorrow a.m. with plan for cardiac follow-up with me in 2 weeks Discharge planning: home (when cleared by Cardiology) Medications: Current Inpatient Medications Medications (Trade) Dose Ordered Sig/Bill Route Start Time Stop Time Status Last Admin Dose Admin Atropine Sulfate (Atropine Sulfate 0.1MG/Ml Inj) 0.5 mg ONE PRN IV 06/23/16 12:45 07/23/16 12:44 Ondansetron HCl (Zofran Inj) 4 mg Q6H PRN IV 06/23/16 12:45 07/23/16 12:44 Aspirin (Ecotrin Tab) 81 mg QAM PO 06/24/16 09:00 07/24/16 08:59 06/24/16 07:57 81 MG Atorvastatin Calcium (Lipitor Tab) 80 mg QAM PO 06/24/16 09:00 07/24/16 08:59 06/24/16 07:57 80 MG Metoprolol Tartrate (Lopressor Tab) 25 mg Q12 PO 06/23/16 21:00 07/23/16 20:59 06/24/16 07:57 25 MG Lisinopril (Zestril Tab) 5 mg QAM PO 06/24/16 09:00 07/24/16 08:59 06/24/16 07:56 5 MG Acetaminophen (Tylenol Tab) 650 mg Q4H PRN PO 06/23/16 12:45 07/23/16 12:44 Ticagrelor (Brilinta Cap) 90 mg BID PO 06/23/16 21:00 07/23/16 20:59 06/24/16 07:57 90 MG Pantoprazole Sodium (Protonix Tab) 40 mg QAM PO 06/24/16 09:00 07/24/16 08:59 06/24/16 07:57 40 MG Enoxaparin Sodium (Lovenox Inj) 40 mg DAILY SQ 06/24/16 09:00 07/24/16 08:59 06/24/16 09:03 40 MG Lab Results: 06/24/16 05:24 Red Blood Count 4.77, Mean Corpuscular Volume 93.5, Mean Corpuscular Hemoglobin 32.5, Mean Corpuscular Hemoglobin Concent 34.8, Mean Platelet Volume 11.1, Neutrophils (%) (Auto) 75.8, Lymphocytes (%) (Auto) 14.0, Monocytes (%) (Auto) 8.8, Eosinophils (%) (Auto) 1.0, Basophils (%) (Auto) 0.2, Neutrophils # (Auto) 9.52, Lymphocytes # (Auto) 1.75, Monocytes # (Auto) 1.10, Eosinophils # (Auto) 0.12, Basophils # (Auto) 0.02 06/24/16 05:24 Test 06/23/16 18:17 06/24/16 05:24 Magnesium Level 2.1 mg/dl (1.8-2.4) White Blood Count 12.54 K/uL (4.8-10.8) Red Blood Count 4.77 M/uL (4.7-6.1) Hemoglobin 15.5 g/dL (14.0-18.0) Hematocrit 44.6 % (42-52) Mean Corpuscular Volume 93.5 fL (80-100) Mean Corpuscular Hemoglobin 32.5 pg (25-34) Mean Corpuscular Hemoglobin Concent 34.8 g/dl (32-36) Platelet Count 197 K/uL (130-400) Mean Platelet Volume 11.1 fL (7.4-10.4) Neutrophils (%) (Auto) 75.8 % Lymphocytes (%) (Auto) 14.0 % Monocytes (%) (Auto) 8.8 % Eosinophils (%) (Auto) 1.0 % Basophils (%) (Auto) 0.2 % Neutrophils # (Auto) 9.52 K/uL (1.4-6.5) Lymphocytes # (Auto) 1.75 K/uL (1.2-3.4) Monocytes # (Auto) 1.10 K/uL (0.11-0.59) Eosinophils # (Auto) 0.12 K/uL (0-0.5) Basophils # (Auto) 0.02 K/uL (0-0.2) RDW Standard Deviation 45.8 fL (36.4-46.3) RDW Coefficient of Variation 13.4 % (11.5-14.5) Immature Granulocyte % (Auto) 0.2 % Immature Granulocyte # (Auto) 0.03 K/uL (0.00-0.02) Anion Gap 9.0 mmol/L (3-11) Est Creatinine Clear Calc Drug Dose 81.4 ml/min Estimated GFR () 82.9 Estimated GFR (Non- 71.6 BUN/Creatinine Ratio 14.9 (10-20) Estimated Average Glucose 103 mg/dl Hemoglobin A1c 5.2 % (4.5-5.6) Calcium Level 8.4 mg/dl (8.5-10.1) Troponin I 23.100 ng/ml (0-0.045) Triglycerides Level 116 mg/dl (0-150) Cholesterol Level 125 mg/dl (0-200) HDL Cholesterol 40 mg/dl LDL Cholesterol, Calculated 62 mg/dl VLDL Cholesterol, Calculated 23 mg/dl Cholesterol/HDL Ratio 3.1
--- NOTE | 2016-06-24 14:36 | Critical Care Progress Note ---
Critical Care Progress Note Date of Service Jun 24, 2016. Attending Dr. Cook Subjective 60 y/o M with a PMH of hyperlipidemia, GERD and borderline HTN, presented to the ER with shoulder pain, fatigue, lightheadedness and near syncope after a spin class. He underwent emergent cardiac catheterization after his EKG revealed significant ST segment elevation in the inferior and lateral leads. he is s/p cardiac cath with angioplasty and drug eluting stent with 100% RCA occlusion. hd a 19 sec run of Vtach last night which resolved spontaneously Doing well denies any chest pain, SOB, palpitations, lightheadedness . Objective GENERAL: Patient is in no acute distress. HEENT: No acute trauma, normocephalic atraumatic, mucous membranes moist, no nasal congestion, no scleral icterus. NECK: No stridor, no adenopathy, no meningismus, trachea is midline. LUNGS: Clear to auscultation bilaterally, no wheeze, no rhonchi, breath sounds equal. HEART: Without murmurs gallops or rubs, regular rate and rhythm. ABDOMEN: Soft, nontender, bowel sounds positive, no hernias, no peritonitis. EXTREMITIES: No cyanosis or edema, full range of motion of all the joints without pain or difficulty, no signs for acute trauma. NEUROLOGIC: Oriented x 3, no acute motor or sensory deficits, no focal weakness. SKIN: No rash, no jaundice, no diaphoresis. EKG: Unusual P axis, possible ectopic atrial bradycardia Possible Old Inferior infarct (cited on or before 23-JUN-2016) Abnormal ECG When compared with ECG of 23-JUN-2016 14:09, Ectopic atrial rhythm has replaced Sinus rhythm Assessment & Plan 60 y/o M with a PMH of hyperlipidemia, GERD and borderline HTN, presented to the ER with shoulder pain, fatigue, lightheadedness and near syncope after a spin class . He underwent emergent cardiac catheterization after his EKG revealed significant ST segment elevation in the inferior and lateral leads. he is s/p cardiac cath with angioplasty and drug eluting stent with 100% RCA occlusion. developed a run of Vtach last night but was asymptomatic Neuro: - Alert and oriented CVS: Acute STEMI s/p cardiac cath - Angioplasty to distal RCA with drug eluting stent - Echo: Left ventricular systolic function is normal. Ejection Fraction = 55-60%. The left ventricular wall motion is normal. - Integrilin for 18 hours done - Aspirin and Brilinta for an year - Zestril 5 mg - Atorvastatin 80 mg - Metoprolol 25 mg BID - Troponin tended Asymptomatic Vtach - for about 19 sec - goal K > 4, goal magnesium > 2 - KCL 40 meq Borderline HTN: - low dose ACEI Hyperlipidemia: - Atorvastatin GI/FEN: - GERD Protonix DVT prophylaxis: SCDS lovenox Resident Physician Supervision Note: Dr. Amrit Ann was resident physician during care of patient. I separately evaluated patient and did history and exam. I discussed the case with the resident and generally agree with the findings and plan. Patient had no more overnight events of ventricular tachycardia, stable for downgraded to telemetry status Documented By: Xu Cook, DO Data Medications: Current Inpatient Medications Medications (Trade) Dose Ordered Sig/Bill Route Start Time Stop Time Status Last Admin Dose Admin Atropine Sulfate (Atropine Sulfate 0.1MG/Ml Inj) 0.5 mg ONE PRN IV 06/23/16 12:45 07/23/16 12:44 Ondansetron HCl (Zofran Inj) 4 mg Q6H PRN IV 06/23/16 12:45 07/23/16 12:44 Aspirin (Ecotrin Tab) 81 mg QAM PO 06/24/16 09:00 07/24/16 08:59 06/24/16 07:57 81 MG Atorvastatin Calcium (Lipitor Tab) 80 mg QAM PO 06/24/16 09:00 07/24/16 08:59 06/24/16 07:57 80 MG Metoprolol Tartrate (Lopressor Tab) 25 mg Q12 PO 06/23/16 21:00 07/23/16 20:59 06/24/16 07:57 25 MG Lisinopril (Zestril Tab) 5 mg QAM PO 06/24/16 09:00 07/24/16 08:59 06/24/16 07:56 5 MG Acetaminophen (Tylenol Tab) 650 mg Q4H PRN PO 06/23/16 12:45 07/23/16 12:44 Ticagrelor (Brilinta Cap) 90 mg BID PO 06/23/16 21:00 07/23/16 20:59 06/24/16 07:57 90 MG Pantoprazole Sodium (Protonix Tab) 40 mg QAM PO 06/24/16 09:00 07/24/16 08:59 06/24/16 07:57 40 MG Enoxaparin Sodium (Lovenox Inj) 40 mg DAILY SQ 06/24/16 09:00 07/24/16 08:59 06/24/16 09:03 40 MG I & O: 24-Hour Column 06/24/16 07:59 Intake Total 3031 ml Output Total 2775 ml Balance 256 ml Vital Signs: Date Time Temp Pulse Resp B/P Pulse Ox O2 Delivery O2 Flow Rate FiO2 06/24/16 12:00 96 Room Air 06/24/16 12:00 36.9 58 16 119/71 96 Room Air 06/24/16 08:00 37.1 63 16 152/88 97 Room Air 06/24/16 08:00 Room Air 06/24/16 08:00 96 Room Air 06/24/16 06:00 65 15 135/86 97 Room Air 06/24/16 04:00 37.0 53 15 127/81 98 Room Air 06/24/16 04:00 97 Room Air 06/24/16 02:00 62 17 141/80 98 Room Air 06/24/16 00:01 37.3 52 16 138/83 97 Room Air 06/24/16 00:00 97 Room Air 06/23/16 22:00 56 15 152/90 97 Room Air 06/23/16 20:00 99 Room Air 06/23/16 20:00 37.4 57 14 150/93 99 Room Air 06/23/16 18:30 63 122/91 98 06/23/16 18:00 37.0 72 122/91 98 06/23/16 16:58 60 132/83 98 06/23/16 16:43 58 125/81 98 06/23/16 16:28 58 117/93 98 06/23/16 16:13 59 134/75 98 06/23/16 16:00 98 Room Air 06/23/16 15:58 60 131/83 97 06/23/16 15:43 58 120/71 98 06/23/16 15:29 59 135/71 97 06/23/16 15:14 64 139/82 98 Laboratory Results: Last 24 Hours Test 06/23/16 18:17 06/24/16 01:43 06/24/16 05:24 Sodium Level 141 mmol/L 143 mmol/L Potassium Level 4.2 mmol/L 3.8 mmol/L Chloride Level 106 mmol/L 109 mmol/L Carbon Dioxide Level 26 mmol/L 25 mmol/L Anion Gap 9.0 mmol/L 9.0 mmol/L Blood Urea Nitrogen 19 mg/dl 16 mg/dl Creatinine 1.40 mg/dl 1.10 mg/dl Est Creatinine Clear Calc Drug Dose 63.9 ml/min 81.4 ml/min Estimated GFR () 62.0 82.9 Estimated GFR (Non- 53.5 71.6 BUN/Creatinine Ratio 13.6 14.9 Random Glucose 87 mg/dl 100 mg/dl Calcium Level 8.6 mg/dl 8.4 mg/dl Magnesium Level 2.1 mg/dl Troponin I 10.700 ng/ml 29.100 ng/ml 23.100 ng/ml White Blood Count 12.54 K/uL Red Blood Count 4.77 M/uL Hemoglobin 15.5 g/dL Hematocrit 44.6 % Mean Corpuscular Volume 93.5 fL Mean Corpuscular Hemoglobin 32.5 pg Mean Corpuscular Hemoglobin Concent 34.8 g/dl Platelet Count 197 K/uL Mean Platelet Volume 11.1 fL Neutrophils (%) (Auto) 75.8 % Lymphocytes (%) (Auto) 14.0 % Monocytes (%) (Auto) 8.8 % Eosinophils (%) (Auto) 1.0 % Basophils (%) (Auto) 0.2 % Neutrophils # (Auto) 9.52 K/uL Lymphocytes # (Auto) 1.75 K/uL Monocytes # (Auto) 1.10 K/uL Eosinophils # (Auto) 0.12 K/uL Basophils # (Auto) 0.02 K/uL RDW Standard Deviation 45.8 fL RDW Coefficient of Variation 13.4 % Immature Granulocyte % (Auto) 0.2 % Immature Granulocyte # (Auto) 0.03 K/uL Estimated Average Glucose 103 mg/dl Hemoglobin A1c 5.2 % Triglycerides Level 116 mg/dl Cholesterol Level 125 mg/dl HDL Cholesterol 40 mg/dl LDL Cholesterol, Calculated 62 mg/dl VLDL Cholesterol, Calculated 23 mg/dl Cholesterol/HDL Ratio 3.1
[2016-06-25 00:12] VITALS: BP 128/82; PULSE 50; TEMP 36.9; O2SAT 98
[2016-06-25 04:31] VITALS: BP 136/83; PULSE 49; TEMP 36.9; O2SAT 97
[2016-06-25 07:22] LABS: BASO % 0.3 %; BASO ABS # 0.03 K/uL (0-0.2); COMPLETE YES; EOS % 1.6 %; HEMATOCRIT 45.3 % (42-52); IG% 0.2 %; LYMPH % 20.4 %; LYMPH ABS # 1.79 K/uL (1.2-3.4); MEAN CELL VOLUME 92.4 fL (80-100); MEAN CORPUSCULAR HEMOGLOBIN 32.4 pg (25-34); MEAN CORPUSCULAR HGB CONC 35.1 g/dl (32-36); MEAN PLATELET VOLUME 10.7 fL (7.4-10.4); MONO % 8.4 %; NEUT % 69.1 %; PLATELET COUNT 193 K/uL (130-400); WHITE BLOOD COUNT 8.77 K/uL (4.8-10.8)
[2016-06-25 07:30] VITALS: BP 128/78; PULSE 54; TEMP 36.2; O2SAT 96
[2016-06-25 07:39] LABS: BUN/CREATININE RATIO 13.4 (10-20); CALCIUM 8.6 mg/dl (8.5-10.1); CREATININE 1.2 mg/dl (0.60-1.40)
[2016-06-25] MEDS: METOPROLOL TARTRATE 25 MG TAB PO SCH (08:41)
[2016-06-25] MEDS: LISINOPRIL 5 MG TAB PO SCH (08:42)
[2016-06-25] MEDS: ASPIRIN 81 MG ECTAB PO SCH (08:42)
[2016-06-25] MEDS: TICAGRELOR 90 MG TAB PO SCH (08:42)
[2016-06-25] MEDS: ATORVASTATIN 40 MG TAB PO SCH (08:42)
[2016-06-25] MEDS: PANTOprazole SOD 40 MG TAB PO SCH (08:42)
[2016-06-25] MEDS: ENOXAPARIN 40 MG/0.4 ML SYR SQ SCH (08:42)
[2016-06-25] MEDS ORDERED: ASPEC81 PO (09:19)
[2016-06-25] MEDS ORDERED: ATOR-26 PO (09:19)
[2016-06-25] MEDS ORDERED: LSN5 PO (09:19)
[2016-06-25] MEDS ORDERED: LPR25 PO (09:19)
[2016-06-25] MEDS ORDERED: BRL90 PO (09:19)
--- NOTE | 2016-06-25 10:51 | Cardiology Follow-Up ---
Subjective Subjective Date of Service: Jun 25, 2016. Pt evaluation today including: conversation w/ patient, conversation w/ family , physical exam, chart review, lab review, review of studies, review of inpatient medication list Additional Details: Feeling well. No recurrent chest pain. Up walking the halls. No events on telemetry Problem List Medical Problems: (1) Acute [place] Status: Acute Review of Systems Constitutional: No chills, No fever Respiratory: No cough Cardiac: No chest pain, No edema, No orthopnea Abdomen: No nausea, No pain Male : No dysuria Neurologic: No memory loss Heme: No abnormal bleeding/bruising Endo: No fatigue Objective Vital Signs Last Vital Signs Documentation Date Time Temp Pulse Resp B/P Pulse Ox O2 Delivery O2 Flow Rate FiO2 06/25/16 07:30 36.2 54 16 128/78 96 Room Air Physical Exam: General Appearance: no apparent distress ENT: hearing grossly normal Neck: no JVD Respiratory/Chest: lungs clear, no respiratory distress Cardiovascular: regular rate, rhythm, no murmur, + pertinent finding (No evidence of hematoma at right radial access site, intact distal pulses.) Abdomen: normal bowel sounds, non tender, soft Extremities: no pedal edema Neurologic/Psychiatric: no motor/sensory deficits, alert, oriented x 3 Skin: normal color, warm/dry Assessment and Plan 1. Inferior STEMI status post PCI with 1 drug eluting stent to distal RCA 2. Non culprit multivessel coronary artery disease 3. Nonsustained VT 4. Hypertension Patient doing well now 2 days post PCI for inferior STEMI From cardiac standpoint Ok for discharge to home later today. -Continue ASA 81 and Brillanta 90mg BID for at least 1 year -continue metoprolol 25mg BID and lisinopril 5 mg -continue high dose statin Follow-up with me in 2 weeks Discharge planning: home (when cleared by Cardiology) Medications: Current Inpatient Medications Medications (Trade) Dose Ordered Sig/Bill Route Start Time Stop Time Status Last Admin Dose Admin Atropine Sulfate (Atropine Sulfate 0.1MG/Ml Inj) 0.5 mg ONE PRN IV 06/23/16 12:45 07/23/16 12:44 Ondansetron HCl (Zofran Inj) 4 mg Q6H PRN IV 06/23/16 12:45 07/23/16 12:44 Aspirin (Ecotrin Tab) 81 mg QAM PO 06/24/16 09:00 07/24/16 08:59 06/25/16 08:42 81 MG Atorvastatin Calcium (Lipitor Tab) 80 mg QAM PO 06/24/16 09:00 07/24/16 08:59 06/25/16 08:42 80 MG Metoprolol Tartrate (Lopressor Tab) 25 mg Q12 PO 06/23/16 21:00 07/23/16 20:59 06/25/16 08:41 25 MG Lisinopril (Zestril Tab) 5 mg QAM PO 06/24/16 09:00 07/24/16 08:59 06/25/16 08:42 5 MG Acetaminophen (Tylenol Tab) 650 mg Q4H PRN PO 06/23/16 12:45 07/23/16 12:44 Ticagrelor (Brilinta Cap) 90 mg BID PO 06/23/16 21:00 07/23/16 20:59 06/25/16 08:42 90 MG Pantoprazole Sodium (Protonix Tab) 40 mg QAM PO 06/24/16 09:00 07/24/16 08:59 06/25/16 08:42 40 MG Enoxaparin Sodium (Lovenox Inj) 40 mg DAILY SQ 06/24/16 09:00 07/24/16 08:59 06/25/16 08:42 40 MG Lab Results: 06/25/16 07:13 Red Blood Count 4.90, Mean Corpuscular Volume 92.4, Mean Corpuscular Hemoglobin 32.4, Mean Corpuscular Hemoglobin Concent 35.1, Mean Platelet Volume 10.7, Neutrophils (%) (Auto) 69.1, Lymphocytes (%) (Auto) 20.4, Monocytes (%) (Auto) 8.4, Eosinophils (%) (Auto) 1.6, Basophils (%) (Auto) 0.3, Neutrophils # (Auto) 6.05, Lymphocytes # (Auto) 1.79, Monocytes # (Auto) 0.74, Eosinophils # (Auto) 0.14, Basophils # (Auto) 0.03 06/25/16 07:13 Test 06/25/16 07:13 White Blood Count 8.77 K/uL (4.8-10.8) Red Blood Count 4.90 M/uL (4.7-6.1) Hemoglobin 15.9 g/dL (14.0-18.0) Hematocrit 45.3 % (42-52) Mean Corpuscular Volume 92.4 fL (80-100) Mean Corpuscular Hemoglobin 32.4 pg (25-34) Mean Corpuscular Hemoglobin Concent 35.1 g/dl (32-36) Platelet Count 193 K/uL (130-400) Mean Platelet Volume 10.7 fL (7.4-10.4) Neutrophils (%) (Auto) 69.1 % Lymphocytes (%) (Auto) 20.4 % Monocytes (%) (Auto) 8.4 % Eosinophils (%) (Auto) 1.6 % Basophils (%) (Auto) 0.3 % Neutrophils # (Auto) 6.05 K/uL (1.4-6.5) Lymphocytes # (Auto) 1.79 K/uL (1.2-3.4) Monocytes # (Auto) 0.74 K/uL (0.11-0.59) Eosinophils # (Auto) 0.14 K/uL (0-0.5) Basophils # (Auto) 0.03 K/uL (0-0.2) RDW Standard Deviation 45.2 fL (36.4-46.3) RDW Coefficient of Variation 13.4 % (11.5-14.5) Immature Granulocyte % (Auto) 0.2 % Immature Granulocyte # (Auto) 0.02 K/uL (0.00-0.02) Anion Gap 9.0 mmol/L (3-11) Est Creatinine Clear Calc Drug Dose 72.8 ml/min Estimated GFR () 74.7 Estimated GFR (Non- 64.4 BUN/Creatinine Ratio 13.4 (10-20) Calcium Level 8.6 mg/dl (8.5-10.1)
[2016-06-25 12:10] VITALS: BP 130/89; PULSE 56; TEMP 36.6; O2SAT 98
--- NOTE | 2016-06-25 12:23 | Discharge Instructions ---
Discharge Instructions Admission Reason for Admission: Acute Myocardial Infarction Discharge Discharge Diagnosis / Problem: Acute myocardial infarction Discharge Goals Goal(s): Decrease discomfort, Improve function, Increase independence, Improve disease control, Learn about illness Activity Recommendations Activity Limitations: per Instructions/Follow-up section . Instructions / Follow-Up Instructions / Follow-Up Home Care: * Take your medications exactly as directed. Don't skip doses. * Remember that recovery after a heart attack takes time. Plan to rest for at lease 4-8 weeks while you recover. Then return to normal activity when your doctor says it's okay. * Ask your doctor about joining a heart rehabilitation program. * Tell your doctor if you are feeling depressed. Feelings of sadness are common after a heart attack, but it is important that you speak to someone if you are feeling overwhelmed by these feelings. * If you are having chest pain, call 911 for an ambulance. Do NOT drive yourself to the hospital. * Ask your family members to learn CPR. * Learn to take your own blood pressure and pulse. Keep a record of your results. Ask your doctor when you should seek emergency medical attention. He or she will tell you which blood pressure reading is dangerous. Lifestyle Changes: * Maintain a healthy weight. Get help to lose any extra pounds. * Cut back on salt. * Limit canned, dried, packaged, and fast foods. * Don't add salt to your food. * Season foods with herbs instead of salt when you cook. * Break the smoking habit. Enroll in a stop-smoking program to improve your chances of success. * Limit fatty foods. * Check your lipid levels regularly. (Your doctor can show you how to do this.) * Build up your activity according to your doctor's recommendation. * Ask your doctor when it's okay to resume sexual activity. * Tell your doctor about any erectile dysfunction (ED) medication you are taking. Some ED medications are not safe if you take certain heart medications. * Try to manage stress. Follow Up: It is important for you to keep your follow up appointments with your medical provider. Current Hospital Diet Patient's current hospital diet: AHA Diet (Heart Healthy) Discharge Diet Recommended Diet: AHA Diet (Heart Healthy) Pending Studies Studies pending at discharge: no Laboratory Results Hemoglobin A1c Test 06/24/16 05:24 Range/Units Estimated Average Glucose 103 mg/dl Hemoglobin A1c 5.2 4.5-5.6 % Lipid Panel Test 06/24/16 05:24 Range/Units Triglycerides Level 116 0-150 mg/dl Cholesterol Level 125 0-200 mg/dl HDL Cholesterol 40 mg/dl Cholesterol/HDL Ratio 3.1 LDL Cholesterol, Calculated 62 mg/dl Medical Emergencies . Who to Call and When: Medical Emergencies: If at any time you feel your situation is an emergency, please call 911 immediately. Call 911 immediately or go to your nearest Emergency Room if you experience any of the following: Warning Signs and Symptoms of a Heart Attack * Chest pain that is not relieved by medication * Shortness of breath . Non-Emergent Contact Non-Emergency issues call your: Primary Care Provider Call Non-Emergent contact if: your pain is worsening, your pain is concerning you, you have any medication questions . . "Provider Documentation" section prepared by Cameron Montilla. AMI Core Measures Reason no ASA as I/P: Treatment provided - N/A Reason no ASA at D/C: Treatment provided - N/A Reason no statin as I/P: Treatment provided - N/A Reason no statin at D/C: Treatment provided - N/A VTE Core Measure Inpt VTE Proph given/why not?: Enoxaparin (Lovenox)SQ, SCD's
[2016-06-25 12:31] VITALS: BP 130/89; PULSE 56; TEMP 36.6; O2SAT 98
--- NOTE | 2016-06-25 12:33 | Discharge Summary ---
Discharge Summary Admission Date: Jun 23, 2016 at 12:49 Discharge Date: Jun 25, 2016 Discharge Disposition: Home Principal Diagnosis: STEMI Consultations: Interventional Cardiology - Dr. Dale Jones Straight Truck Driver - Ivan Liang PA-C Medication Reconciliation New Medications: Aspirin (Aspirin EC Low Dose) 81 Mg Ectab 81 MG PO QAM for 30 Days, #30 TABS Atorvastatin (Lipitor) 80 Mg Tab 1 TAB PO HS for 30 Days, TAB Lisinopril (Lisinopril) 5 Mg Tab 5 MG PO QAM for 30 Days, #30 TAB Metoprolol Tartrate (Lopressor) 25 Mg Tab 25 MG PO Q12 for 30 Days, #60 TAB Ticagrelor (Brilinta) 90 Mg Tab 90 MG PO BID for 30 Days, #60 TAB Discharge Exam Physical Exam: General Appearance: no apparent distress Eyes: sclerae normal Neck: no JVD Respiratory/Chest: normal breath sounds, no respiratory distress Cardiovascular: regular rate, rhythm, no murmur Abdomen / GI: normal bowel sounds, non tender, soft Extremities: no pedal edema Neurologic/Psychiatric: no motor/sensory deficits, alert, normal mood/affect , oriented x 3 Skin: normal color, warm/dry Hospital Course (1) ST elevation (STEMI) myocardial infarction involving right coronary artery Status: Acute Patient presented to the ED after developing pain in his right shoulder blade radiating across and down his left arm while at a spinning class. He subsequently had a syncopal episode. On arrival to the ED, he was noted to have criteria for an inferior STEMI on EKG and was taken to the microbiology lab technician where placed one drug-eluting stent to a 100% lesion in the distal RCA. There was disease throughout multiple other vessels which will be addressed on an outpatient basis at a later date. He was monitored in the ICU and was on an Integrillin drip overnight. The following morning, he remained stable and was downgraded to the tele unit. By the following morning, he was feeling well. No significant arrhythmia noted on telemetry. He has been cleared for discharge by Cardiology. Follow up appointments were made on his behalf with his PCP, Dr. Moy, and with Cardiology. He was given scripts for his new medications and all his questions were addressed. He is discharged home in stable condition. Total Time Spent: Less than 30 minutes This includes examination of the patient, discharge planning, medication reconciliation, and communication with other providers. Discharge Instructions Please refer to the electronic Patient Visit Report (Discharge Instructions) for additional information. Follow-Up 1. PCP, Dr. Moy 2. Cardiology, 's office. Additional Copies To ,Lee Tipton M.D.
[2016-08-04] MEDS ORDERED: OMEG10007 PO (14:22)
[2016-08-04] MEDS ORDERED: PRLSR20 PO (14:22)
[2016-08-04] MEDS ORDERED: FLVHFA110 INH (14:22)
[2016-08-04] MEDS ORDERED: LOSA1TAB PO (14:22)
[2016-08-04] MEDS ORDERED: CYAN10005 PO (14:22)
[2016-08-04] MEDS ORDERED: MULTTAB5 PO (14:22)
[2016-08-04] MEDS ORDERED: CHOL2000 PO (14:22)
[2016-08-04] MEDS ORDERED: CYCL0.052 OP (14:22)
[2016-08-04] MEDS ORDERED: VITA400C3 PO (14:22)
== END 2016-06-25 13:22 | disposition home or self-care (01) | DRG 247 ==
LOC: ENRESERVDT → ENRESERVTM → C.EDB 11:02 → C.MSICU 12:49 → EDBEDREQ 06-24 17:33 → CANBEDREQ 06-24 17:38 → C.2T 06-24 21:17
PROVIDERS: ADMIT Internal Medicine Interventional Cardiology; ATTEND Hospitalist
PROC: 027044Z Dilation of Coronary Artery, One Artery with Drug-eluting Intraluminal Device, Percutaneous Endoscopic Approach (ICD-10-PCS; principal; 2016-06-23 11:30)
PROC: B211YZZ Fluoroscopy of Multiple Coronary Arteries using Other Contrast (ICD-10-PCS; principal; 2016-06-23 11:30)
PROC: 4A023N7 Measurement of Cardiac Sampling and Pressure, Left Heart, Percutaneous Approach (ICD-10-PCS; principal; 2016-06-23 11:30)
DX: I21.19 ST elevation (STEMI) myocardial infarction involving other coronary artery of inferior wall (principal); I47.2 Ventricular tachycardia; I10 Essential (primary) hypertension; I25.10 Atherosclerotic heart disease of native coronary artery without angina pectoris; K21.9 Gastro-esophageal reflux disease without esophagitis; E78.5 Hyperlipidemia, unspecified; Z82.49 Family history of ischemic heart disease and other diseases of the circulatory system; Z79.82 Long term (current) use of aspirin; Z79.899 Other long term (current) drug therapy

== ENCOUNTER → 2016-07-12 | Outpatient (CLI) | payer BC ==
[~2016-07-12] MED LIST changes: +ASPEC81 PO; -ASPI81TA28 PO; +ATOR-26 PO; -ATOR10TA88 PO; +BRL90 PO; -CHOL100027 PO; +CHOL2000 PO; -CLXOPO OP; -CYAN100020 PO; +CYAN10005 PO; +CYCL0.052 OP; +FLVHFA110 INH; +LOSA1TAB PO; +LPR25 PO; +LSN5 PO; -MULT-506 PO; +MULTTAB5 PO; -RSTOPS OP; -VITA1TAB12 PO; +VITA400C3 PO
--- NOTE | 2016-07-12 19:03 | MYOCARDIAL PERFUSION SCAN ---
TIME: 17:24 p.m. ORDERING PHYSICIAN: Dr. Dale Jones. PCP: Dr. Lee Israel PROCEDURE: 1. Myocardial perfusion study performed in multiple views/images. 2. Exercise stress ECG per Tylor protocol. INDICATIONS: 1. CAD. CONSENT: Informed written consent was obtained. EXERCISE STRESS ECG: Baseline ECG demonstrated normal sinus rhythm at 66 beats per minute. Inferolateral T-wave inversion. Exercise ECG demonstrated no significant ST changes. No arrhythmia. Maximum heart rate was 136 beats per minute representing 86% maximum predicted heart rate. Resting blood pressure was 126/78 mmHg. Maximum blood pressure was 180/78 mmHg. Study was terminated secondary to leg fatigue. No chest pain reported. The patient exercised a total of 11 minutes and 8 seconds on standard Tylor protocol achieving 13.4 mets. Good exercise tolerance. PROCEDURAL DETAILS: For the stress portion of the study 32.5 mCi of technetium-99m Cardiolite was injected intravenously at 14:02 p.m. on 07/12/2016. Fifteen minutes following the injection, imaging of the heart was performed in multiple projections. For the rest portion of the study 10.8 mCi of technetium-99m Cardiolite was injected intravenously at 11:45 a.m. on the same day. One hour following the injection, imaging of the heart was performed in the same projections. FINDINGS: Rotating raw imaging demonstrated mild motion artifact for stress imaging and moderate motion artifact for rest imaging. The heart size appeared normal. There was no significant lung uptake. MYOCARDIAL PERFUSION: Myocardial perfusion demonstrated a moderate-sized area of moderately reduced uptake in the inferior wall from base to mid ventricle and the inferolateral wall from base to distal left ventricle. This defect was reversible in rest imaging. There was no significant fixed defect. There was no significant transient ischemic dilation. Ejection fraction was 62%. Wall motion appeared normal. IMPRESSION: 1. Abnormal myocardial perfusion study suggesting ischemic changes in the base to mid inferior wall and base to distal inferolateral wall. 2. Wall motion appeared normal. 3. Ejection fraction 62%. Normal LV systolic function. 4. Good exercise tolerance. 5. Negative exercise ECG at 86% maximum predicted heart rate. 6. No arrhythmia. 7. Appropriate blood pressure response to exercise. 8. No chest pain. 9. was notified of the above findings. [facility]
== END | disposition home or self-care (01) ==
LOC: C.NUCL 11:09
PROVIDERS: ATTEND Internal Medicine Interventional Cardiology
DX: I25.10 Atherosclerotic heart disease of native coronary artery without angina pectoris (principal)

== ENCOUNTER → 2016-10-11 | Outpatient (CLI) | payer BC ==
[~2016-10-11] MED LIST changes: -LSN5 PO
[2016-10-11 15:20] LABS: MEAN CELL VOLUME 94.5 fL (80-100); MEAN CORPUSCULAR HEMOGLOBIN 32.1 pg (25-34); MEAN PLATELET VOLUME 10.6 fL (7.4-10.4); PLATELET COUNT 224 K/uL (130-400); RED BLOOD COUNT 4.76 M/uL (4.7-6.1); WHITE BLOOD COUNT 8.12 K/uL (4.8-10.8)
[2016-10-11 15:38] LABS: ALT/SGPT 36 U/L (12-78); AST/SGOT 16 U/L (15-37); BLOOD UREA NITROGEN 25 mg/dl (7-18); BUN/CREATININE RATIO 20.7 (10-20); CALCIUM 8.9 mg/dl (8.5-10.1); CARBON DIOXIDE 25 mmol/L (21-32); CHLORIDE 107 mmol/L (98-107); GLUCOSE 99 mg/dl (70-99); POTASSIUM 4.1 mmol/L (3.5-5.1); SODIUM 141 mmol/L (136-145)
== END | disposition home or self-care (01) ==
LOC: C.LAB1850 13:05
PROVIDERS: ATTEND Physician Assistant
DX: E78.5 Hyperlipidemia, unspecified (principal); I25.10 Atherosclerotic heart disease of native coronary artery without angina pectoris

== ENCOUNTER → 2016-12-13 | Outpatient (CLI) | payer BC ==
[2016-12-13 11:20] LABS: ALT/SGPT 40 U/L (12-78); AST/SGOT 16 U/L (15-37); BLOOD UREA NITROGEN 23 mg/dl (7-18); BUN/CREATININE RATIO 16.4 (10-20); CARBON DIOXIDE 31 mmol/L (21-32); CHLORIDE 106 mmol/L (98-107); GLUCOSE 94 mg/dl (70-99); SODIUM 139 mmol/L (136-145)
[2016-12-13 11:24] LABS: CHOLESTEROL 103 mg/dl (0-200); CHOLESTEROL/HDL RATIO 2.8; HDL CHOLESTEROL 37 mg/dl; LDL CHOLESTEROL CALCULATED 44 mg/dl; TRIGLYCERIDES 112 mg/dl (0-150); VERY LOW DENSITY LIPOPROT CALC 22 mg/dl
[2016-12-13 11:41] LABS: ESTIMATED AVERAGE GLUCOSE 108 mg/dl; HA1C FLAG Normal (Normal)
== END | disposition home or self-care (01) ==
LOC: C.LABBC 08:54
PROVIDERS: ATTEND Internal Medicine
DX: E78.5 Hyperlipidemia, unspecified (principal); I25.10 Atherosclerotic heart disease of native coronary artery without angina pectoris; R73.9 Hyperglycemia, unspecified; E53.8 Deficiency of other specified B group vitamins

== ENCOUNTER → 2017-03-30 | Outpatient (CLI) | payer BC ==
[2017-03-30 11:21] LABS: BLOOD UREA NITROGEN 26 mg/dl (7-18); CREATININE 1.42 mg/dl (0.60-1.40); GLUCOSE 97 mg/dl (70-99)
[2017-03-30 11:22] LABS: BUN/CREATININE RATIO 18.6 (10-20); CALCIUM 9.2 mg/dl (8.5-10.1); CARBON DIOXIDE 30 mmol/L (21-32); CHLORIDE 105 mmol/L (98-107); SODIUM 139 mmol/L (136-145)
[2017-03-30 11:26] LABS: CHOLESTEROL 88 mg/dl (0-200); CHOLESTEROL/HDL RATIO 2.3; HDL CHOLESTEROL 39 mg/dl; LDL CHOLESTEROL CALCULATED 33 mg/dl; TRIGLYCERIDES 78 mg/dl (0-150); VERY LOW DENSITY LIPOPROT CALC 16 mg/dl
== END | disposition home or self-care (01) ==
LOC: C.LABBC 08:35
PROVIDERS: ATTEND Internal Medicine
DX: Z12.5 Encounter for screening for malignant neoplasm of prostate (principal); E78.5 Hyperlipidemia, unspecified; R73.9 Hyperglycemia, unspecified

== ENCOUNTER → 2017-08-07 | Outpatient (CLI) | payer OTHER ==
[2017-08-07 11:25] LABS: ALT/SGPT 43 U/L (12-78); AST/SGOT 13 U/L (15-37); BLOOD UREA NITROGEN 19 mg/dl (7-18); CALCIUM 8.8 mg/dl (8.5-10.1); CARBON DIOXIDE 29 mmol/L (21-32); CHOLESTEROL 99 mg/dl (0-200); CREATININE 1.48 mg/dl (0.60-1.40); GLUCOSE 107 mg/dl (70-99); POTASSIUM 3.9 mmol/L (3.5-5.1); SODIUM 139 mmol/L (136-145)
[2017-08-07 11:28] LABS: LDL CHOLESTEROL CALCULATED 36 mg/dl
== END | disposition home or self-care (01) ==
LOC: C.LABBC 08:33
PROVIDERS: ATTEND Internal Medicine
DX: R73.9 Hyperglycemia, unspecified (principal); E78.5 Hyperlipidemia, unspecified; E53.8 Deficiency of other specified B group vitamins

== ENCOUNTER → 2017-09-21 | Outpatient (CLI) | payer OTHER ==
[~2017-09-21] MED LIST changes: -ASPEC81 PO; +ASPI-320 PO
== END | disposition home or self-care (01) ==
LOC: C.LABBC 10:09
PROVIDERS: ATTEND Internal Medicine
DX: J02.9 Acute pharyngitis, unspecified (principal)